=== PATIENT | male | born 1995 | race Caucasian/White ===

== ENCOUNTER 2017-11-16 20:44 | Inpatient (IN) | payer OTHER, MEDICAID ==
[~2017-11-16] VITALS: Ht 170.2 cm; Wt 56.2 kg
--- NOTE | 2017-11-16 21:00 | NUR ---
Pre-Admission Patient was seen in intake office. Patient is noted very hyperverbal, hyperactive, unable to sit still, anxious, flat, and irritable. Policies on home medications reviewed with patient and patient verbalized understanding and stated "I didn't bring anything anyway." Will continue with admission assessment on unit.
--- NOTE | 2017-11-16 21:15 | NUR ---
Admission Patient is a 22 year old male arriving from [place] to [facility] to receiving treatment for his Heroin Withdrawal. Patient was escorted on to unit by male UPHOLSTERY RESTORER where body check was rendered. Skin check rendered by primary nurse with skin noted intact. Patient was able to provide Urine drug screen upon arrival to unit. No known allergies. Height noted as 5'7 and weight noted as 124lbs. Patient is ambulatory with no assistance needed. Patient is noted to be hyperactive, hyperverbal, flat, anxious, easily agitated. Breathing is even and non labored. BUE and BLE noted to be WNL with no edema noted. Lung sounds clear with no cough noted. Bowel sounds are active in all 4 quadrants with LBM noted 11/16/17. Patient verbalizes past medical history of anxiety and insomnia. No Home medications noted with patient or verbalized. No history of Seizure noted. Patient denies any suicidal ideations. He describes his usage as: 1. Heroin, unable to verbalize of when patient first started using and states "a while ago", currently using 1GM Daily IV, with last use noted 11/16/17 at 1400 using 0.5GM Patient explains his signs and symptoms of withdrawal as "I dont know. I'm fidgety, I just feel crazy." Patient explains of multiple treatment admissions with last one noted 2 weeks ago to "[facility] for 2 weeks. Patient is currently Homeless and is unemployed. Admission COWS noted to be 14. All information relayed to MD. Labs to be rendered. PRN medications available for increased signs and symptoms. Offered Subutex due to elevated Subutex and patient refused stating "I dont want that now. its too soon to take it." As well as One time dose of Ativan 2mg for increased anxiety and agitation. Will administered Ativan 2mg accordingly. Will continue plan of care as ordered.
[2017-11-16 21:20] VITALS: BP 147/93
[2017-11-16 21:36] LABS: *AMPHETAMINE, URINE NEGATIVE (NEGATIVE); *BARBITURATE, URINE NEGATIVE (NEGATIVE); *CANNABINOID, URINE NEGATIVE (NEGATIVE); *COCCAINE, URINE NEGATIVE (NEGATIVE); *OPIATE, URINE POSITIVE (NEGATIVE); *PHENCYCLIDINE SCREEN,URINE NEGATIVE (NEGATIVE)
[2017-11-16] MEDS ORDERED: ACETAMINOPHEN 325 MG TABLET PO PRN (22:15)
[2017-11-16] MEDS ORDERED: LOPERAMIDE HCL 2 MG CAPSULE PO PRN ×2 (22:15)
[2017-11-16] MEDS ORDERED: MAGNESIUM HYDROXIDE 30 ML LIQUID UDC PO PRN (22:15)
[2017-11-16] MEDS ORDERED: LORAZEPAM 1 MG TABLET PO ONE (22:15)
[2017-11-16] MEDS ORDERED: METHOCARBAMOL 750 MG TABLET PO PRN (22:15)
[2017-11-16] MEDS ORDERED: ONDANSETRON 4 MG/2 ML VIAL IM PRN (22:15)
[2017-11-16] MEDS ORDERED: MAG HYDROX/AL HYDROX/SIMETH 30 ML LIQUID UDC PO PRN (22:15)
[2017-11-16] MEDS ORDERED: MIRALAX 17 GM POWD.PACK PO PRN (22:15)
[2017-11-16] MEDS ORDERED: IBUPROFEN 400 MG TABLET PO PRN (22:15)
[2017-11-16] MEDS ORDERED: ONDANSETRON ODT 4 MG TAB.RAPDIS SL PRN (22:15)
[2017-11-16] MEDS ORDERED: diphenhydrAMINE 50 MG CAPSULE PO PRN (22:15)
[2017-11-16] MEDS ORDERED: BUPRENORPHINE HCL 2 MG TAB.SUBL SL PRN (22:15)
[2017-11-16] MEDS ORDERED: DICYCLOMINE HCL 20 MG TABLET PO PRN (22:15)
[2017-11-17 00:56] VITALS: BP 132/86
[2017-11-17 04:20] VITALS: BP 129/73
--- NOTE | 2017-11-17 07:23 | NUR ---
End of Shift Patient is noted in bed sleeping. Breathing even and non labored. No signs of pain or discomfort noted as evidence of no facial grimacing noted. No restlessness. Patient to be reassessed by MD for possible Subutex taper. PRN medications ordered for increased signs and symptoms of withdrawal. Patient is noted to be very hyperactive, hyperverbal, easily irritable, anxious, flat, and labile. Admission COWS 14. One time dose of Ativan 2mg administered for increased agitation and anxiety. Patient noted to sleep a total of 7 hours. All needs attended to promptly. Will endorse to continue plan of care as ordered.
[2017-11-17 08:00] VITALS: BP 99/60
--- NOTE | 2017-11-17 08:00 | NUR ---
Start of shift note Received report from night nurse. Patient is a 22 year old male admitted on 11/16/17 for Opiate withdrawals. Patient's last COWS score was 14 per endorsement but patient refused to take Subutex last night, patient received PRN Ativan last night noted to be effective. Patient refused LAB draw at this time, educated patient regarding the importance of compliance to treatment and medication regime, verbalized understanding. Patient appears anxious, agitated, showing irritability, blunt and rude behavior noted. All safety measures secured. Will continue to monitor patient.
[2017-11-17] MEDS ORDERED: TUBERCULIN,PURIF.PROT.DERIV. 5 TU/0.1 ML TEST ID ONE (09:00)
[2017-11-17] MEDS: MULTIVITAMINS,THERAPEUTIC TABLET PO SCH (09:00)
[2017-11-17] MEDS: DOCUSATE SODIUM 250 MG CAPSULE PO SCH (09:00)
--- NOTE | 2017-11-17 09:26 | NUR ---
Medication Refusal; Patient refused to take due medications at this time, patient stated "just let me sleep". Educated patient regarding the importance of compliance to treatment, verbalized understanding. Patient's current COWS score is 6, MD to evaluate patient during rounds. Will closely monitor patient.
--- NOTE | 2017-11-17 09:56 | NUR ---
Behavioral note; Patient is AOX4, patient is very agitated and anxious, complaining of muscle aches, with poor eye contact, angry, irritable, easily overwhelmed, fidgety, demanding, defensive, manipulative, impulsive, attention seeking and complaining of difficulty sleeping. COWS score is 12 at this time. Offered patient Subutex and Vistaril patient refused to take any medications at this time. Patient is asking for Ativan at this time, educated patient that he does not have an order for Ativan and he will be evaluated by MD during rounds. Patient requested to take medications after evaluation by MD. Will closely monitor patient.
--- NOTE | 2017-11-17 10:19 | NUR ---
telephone order; Patient appears very anxious, and agitated unable to sit still. Patient refused LAB draw at this time. Educated patient regarding the importance of compliance to treatment plan, verbalized understanding. MD ordered PRN Ativan 1mg PO Q6H PRN for anxiety and agitation for 24 hours only. Entered on [employer], MD does not have access to [facility] at this time.
[2017-11-17] MEDS: LORAZEPAM 1 MG TABLET PO PRN ×2 (10:31→19:38)
--- NOTE | 2017-11-17 10:40 | NUR ---
Subutex, 4mg PO PRN and Ativan 1mg PO PRN given at 1031 for severe anxiety/agitation. CIWA 12, thorough mouth swab/check performed post
--- NOTE | 2017-11-17 10:54 | NUR ---
Nurse note; PRN medications administered by RN for anxiety,agitation and withdrawal symptoms and COWS of 12. Thorough mouth check done, witnessed Subutex dissolve completely and Ativan was swallowed. Patient agreed to get blood drawn, LAB staff notified. Patient shows suspicious behaviors, PHYSICIST ACOUSTICS seismic prospecting supervisor and charge nurse notified. Addendum: 11/17/17 at 1111 by RICHARD SANTANA LVN Thorough room search to be done by PHYSICIST ACOUSTICS per PHYSICIST ACOUSTICS seismic prospecting supervisor.
--- NOTE | 2017-11-17 11:01 | NUR ---
Re-assessment; Re-assessed patient, patient's current COWS score is 9, PRN Subutex noted to be effective. Will follow up with regarding possible taper orders.
[2017-11-17 11:19] LABS: EOSINOPHILS # (AUTO) 0.3 K/uL (0.0-0.7); EOSINOPHILS % (AUTO) 6.5 % (0.0-7.0); HEMATOCRIT 44.7 % (36.7-47.1); HEMOGLOBIN 15.3 g/dL (12.5-16.3); LYMPHOCYTES # (AUTO) 1.4 K/uL (20.0-40.0); MEAN CORPUSCULAR HEMOGLOBIN 29.7 uug (23.8-33.4); MEAN CORPUSCULAR HGB CONC 34 g/dL (32.5-36.3); MEAN CORPUSCULAR VOLUME 86.9 fL (73.0-96.2); MONOCYTES # (AUTO) 0.4 K/uL (2.0-10.0); NEUTROPHILS # (AUTO) 2.6 K/uL (1.8-8.9); NEUTROPHILS % (AUTO) 53.5 % (38.5-71.5); PLATELET COUNT (AUTO) 262 K/uL (152-348); RED BLOOD CELL COUNT(AUTO) 5.14 MIL/uL (4.06-5.63); WHITE BLOOD COUNT (AUTO) 4.8 K/uL (3.6-10.2)
[2017-11-17 11:28] LABS: ETHANOL < 3 MG/DL (0-0)
[2017-11-17 11:31] LABS: ALANINE AMINOTRANSFERASE 24 U/L (16-63); ALKALINE PHOSPHATASE 72 U/L (50-136); AMYLASE 75 U/L (25-115); ASPARTATE AMINOTRANSFERASE 25 U/L (15-37); BILIRUBIN,TOTAL 0.4 mg/dL (0.2-1.0); CARBON DIOXIDE 26 mmol/L (21-32); CHLORIDE 104 mmol/L (98-107); CREATININE 1.1 mg/dL (0.6-1.3); GLUCOSE 120 mg/dL (74-106); LIPASE 97 U/L (73-393); POTASSIUM 4.1 mmol/L (3.5-5.1); TOTAL PROTEIN, SERUM 7.5 g/dL (6.4-8.2); UREA NITROGEN, BLOOD 13 mg/dL (7-18)
--- NOTE | 2017-11-17 11:31 | NUR ---
Re-assessment; Patient appears calm and comfortable, but patient stated "I am still very anxious, can i get another Ativan?". Educated patient regarding unit protocol and policies, verbalized understanding. Will continue to monitor patient.
[2017-11-17 11:41] LABS: THYROID STIMULATING HORMONE 1.284 mIU/mL (0.358-3.740)
[2017-11-17 12:00] VITALS: BP 132/86
[2017-11-17 16:00] VITALS: BP 119/68
--- NOTE | 2017-11-17 19:08 | NUR ---
End of shift note; Patient is AOX4. Patient is anxious, agitated complaining of muscle aches. Medications were effective in reducing withdrawal symptoms. Patient's last COWS score is 8. Patient to start a 4 day Subutex taper tomorrow. All safety measures secured. Endorsed to incoming nurse. Met all needs.
--- NOTE | 2017-11-17 19:15 | NUR ---
Start of shift note Received report from day shift nurse. Pt is a 22 yo male, A+Ox4, presenting to [facility] for Opiate withdrawal. Pt noted with Anxiety, agitation, restlessness, and messy room. Pt has HX of Anxiety and insomnia which will be monitored during shift. Respirations even and unlabored. Will continue to monitor.
--- NOTE | 2017-11-17 19:38 | NUR ---
PRN Ativan Pt c/o anxiety and requested for PRN Ativan. Medication given and tolerated well. Will reassess within 1 HR. Will continue to monitor.
--- NOTE | 2017-11-17 20:35 | NUR ---
PRN Ativan Reassessment Medication effective. Pt expresses reduction in anxiety. No s/s of ASE noted at this time. Respirations even and unlabored. Will continue to monitor.
[2017-11-17 20:47] VITALS: BP 140/93
[2017-11-18 00:56] VITALS: BP 137/84
[2017-11-18 04:30] VITALS: BP 134/82
--- NOTE | 2017-11-18 06:53 | NUR ---
End of shift note Pt continuously noted with messy room, anxiety, agitation, and restlessness. Pt was out of his room frequently to smoke on smoking patio and to get food from kitchen. Pt was given PRN Ativan for anxiety @1938. Pt slept for a total of 9 HRS. Last COWS: 11 @0400. V/S were WNL during shift. Respirations even and unlabored. Will endorse to day shift nurse.
[2017-11-18] MEDS: LORAZEPAM 1 MG TABLET PO PRN (07:33)
--- NOTE | 2017-11-18 07:33 | NUR ---
PRN ATIVAN Patient came to the nursing station and complained of anxiety. Upon assessment, pt. noted anxious and agitated, PRN Ativan 1mg po tab given. Will continue to monitor patient.
[2017-11-18 08:00] VITALS: BP 129/88
[2017-11-18 08:08] LABS: HEPATITIS B SURFACE AG Negative (Negative)
[2017-11-18] MEDS: MULTIVITAMINS,THERAPEUTIC TABLET PO SCH (09:00)
[2017-11-18] MEDS: DOCUSATE SODIUM 250 MG CAPSULE PO SCH (09:00)
[2017-11-18] MEDS: BUPRENORPHINE HCL 2 MG TAB.SUBL SL SCH ×3 (09:00→22:20)
[2017-11-18] MEDS ORDERED: 4 DAY TAPER BUPRENORPHINE -SERENITY PROTOCOL SL PRN (09:00)
--- NOTE | 2017-11-18 09:39 | NUR ---
START OF SHIFT Received report from whitewater rafting guide nurse. Patient is 22 year old male admitted for medically supervised withdrawal from Heroin. Patient is full code with NKA. Patient is on Subutex taper. On assessment this AM: COWS: 13. Denies SOB, chest pain. Patient complained of anxiety around 0730am, came to the nursing station and said I am anxious, I want some anxiety medications. PRN Ativan 1mg po was given. Patients vitals signs: 129/88, HR 105. R18, 02 sat 100%, Temp 98.9. Patient declined his 9am meds and wants another dose of Ativan due to anxiety. He states 1mg Ativan is not sufficient to address his anxiety. He also states I want to take my anxiety medication with my morning meds. I will wait for the doctor. notified. Most recent COWS 13. Patient appears anxious, agitated, restless, tremors and pupil dilation noted, complained of body aches and stuffy nose. Patient spoke to a therapist this morning who encouraged him to take his AM meds but pt. continues to refused. Patient has steady gait. Encouraged to attend group meetings today. Will continue to monitor patient.
[2017-11-18] MEDS: CLONIDINE HCL 0.1 MG TABLET PO PRN ×3 (09:48→22:20)
--- NOTE | 2017-11-18 09:48 | NUR ---
PRN CLONIDINE Patient complained of anxiety, PRN clonidine given, BP 124/87. Will continue to monitor patient.
--- NOTE | 2017-11-18 10:48 | NUR ---
REASSESSMENT PRN CLONIDINE Patient noted asleep with eyes closed and unlabored breathing noted.
[2017-11-18 12:00] VITALS: BP 91/54
[2017-11-18 16:00] VITALS: BP 115/70
--- NOTE | 2017-11-18 16:00 | NUR ---
PRN CLONIDINE Patient complained of anxiety, agitation,sweats, PRN clonidine 0.1mg PO given, Will continue to monitor patient.
--- NOTE | 2017-11-18 17:00 | NUR ---
REASSESSMENT PRN CLONIDINE Patient noted calmer, he reports less anxious at this time.
--- NOTE | 2017-11-18 19:06 | NUR ---
END OF SHIFT Patient is 22 year old male admitted for medically supervised withdrawal from Heroin. Patient is full code with NKA. Patient is on Subutex taper (refused 0900 AM dose). Patient received PRN clonidine X2 this shift for anxiety. Patient was encouraged to take his scheduled subutex at 3pm. He states I will take it with my next scheduled dose of anxiety medication. Most recent COWS: 15, reports anxiety, tremors, sweating, runny nose. Patient noted with agitation, irritable mood, yawning, restlessness and pupil dilation. Compliant with his 3pm medication. Ambulating with steady gait, no falls noted. mason helperlinux server administrator will continue to monitor patient.
--- NOTE | 2017-11-18 19:15 | NUR ---
Start of shift note Received report from day shift nurse. Pt is a 22 yo male, A+Ox4, presenting to [facility] for Opiate withdrawal. Pt noted with anxiety, agitation, and very messy room with food on floor, bed, and dresser. Pt is on 5 day Subutex taper, tolerated well. Pt has HX of anxiety and insomnia which will be monitored during shift. Respirations even and unlabored. Will continue to monitor.
[2017-11-18 20:10] VITALS: BP 128/87
--- NOTE | 2017-11-18 22:20 | NUR ---
PRN Clonidine Pt c/o anxiety and agitation and requested for PRN Clonidine. Medication given and tolerated well. Will reassess within 1 HR. Will continue to monitor.
--- NOTE | 2017-11-18 23:20 | NUR ---
PRN Clonidine Reassessment Medication effective. Pt expresses reduction in anxiety and agitation. No s/s of ASE noted at this time. Respirations even and unlabored. Will continue to monitor.
[2017-11-19 00:12] VITALS: BP_SYST 105; BP_SYST 131; BP_DIAS 73; BP_DIAS 78
[2017-11-19 04:22] VITALS: BP 129/78
--- NOTE | 2017-11-19 06:59 | NUR ---
End of shift note Pt continuously noted with agitation, anxiety, restlessness, very messy room and irritability. Pt was out of room frequently to get food from kitchen and to go smoke on smoking patio. Pt was given PRN Clonidine for anxiety and agitation @2220. Medication was effective. No s/s of ASE noted. Pt slept for a total of 7 HRS. Last COWS: 10 @0400. V/S were WNL during shift. Respirations even and unlabored. Will endorse to day shift nurse.
--- NOTE | 2017-11-19 07:00 | NUR ---
Start of Shift Plant Protection Guard received report on 22 year old male admitted to [facility] on 11/16/17 for medical management of Heroin withdrawal. Pt endorses NKA, full code and regular diet. Pt reports PMH of anxiety and insomnia. Pt currently on a Subutex taper, tolerating well. Last COWS 10, recorded at 0400, per report. Pt administered PRN Clonidine on NOC. Plant Protection Guard encounters pt in bed resting with eyes closed. Rise and fall of chest noted with even rise and fall of chest noted. Bed in low position with wheels locked and side rails up x2. Will continue to monitor, support and encourage according to plan of care.
[2017-11-19 08:55] VITALS: BP 111/59
[2017-11-19] MEDS ORDERED: BUPRENORPHINE HCL 2 MG TAB.SUBL SL SCH (09:00)
[2017-11-19] MEDS: DOCUSATE SODIUM 250 MG CAPSULE PO SCH (09:00)
[2017-11-19] MEDS: MULTIVITAMINS,THERAPEUTIC TABLET PO SCH (09:03)
[2017-11-19] MEDS: CLONIDINE HCL 0.1 MG TABLET PO PRN (09:03)
[2017-11-19] MEDS: HYDROXYZINE PAMOATE 25 MG CAPSULE PO PRN (09:03)
--- NOTE | 2017-11-19 09:03 | NUR ---
PRN Clonidine/Vistaril Pt wakes up and comes to nurses station and requests medication for anxiety. Pt is still having difficulty keeping eyes open and affect is somnolent. Hydrogen Power Plant Manager administers medication per MD orders and pt tolerated well. Will continue to monitor, support and encourage according to plan of care.
--- NOTE | 2017-11-19 09:05 | NUR ---
Subutex Administration Interior Design Program Chair was administering pt's Subutex medication for his scheduled 0900 dose. Interior Design Program Chair was present with pt monitoring pt's behavior during administration. Pt attempted to cheeck medication by lifing one pill onto tongue and placing second pill under tongue. Interior Design Program Chair examined and witnessed only one pill visible. Interior Design Program Chair asked pt what happened with second pill and pt became verbally aggressive and loud. Pt stated, " what if I show you 2 now." Pt then opened mouth and lifted tongue to reveal two pills. Interior Design Program Chair continued to monitor administration of medication, checking with pen light every minute. On last inspection, pills were starting to dissolve. Pt then grabbed a bottle of water and began drinking, scientific technical writer asking pt to stop drinking. Pt continued to drink as scientific technical writer asked again to please stop. Pt completed his drinking and began to verbally berate scientific technical writer. Opening mouth, lifting tongue and revealing the medication was no longer in his mouth, upon inspection with pen light. Interior Design Program Chair notified TERRI CHING and TATIANA. Will continue to monitor, support and encourage according to plan of care.
--- NOTE | 2017-11-19 09:30 | NUR ---
Patient Communication: Patient verbalizes willingness to comply to medication regime and states, "I will take my medications as the Doctor orders them." Patient verbalizes feeling very agitated and anxious but states that he is motivated to pursue long-term sobriety. Patient verbalizes fear of the detox process and difficulty coping with his anxiety and agitation. Patient educated by physician underwriter on medication regime and proper medication administration protocol. Patient encouraged to engage in diversional activities to alleviate anxiety and practice self-soothing techniques such as progressive muscle relaxation to cope with agitation.
--- NOTE | 2017-11-19 10:03 | NUR ---
PRN Re-Assessment Pt is calm and more cooperative, pt endorses feeling relief. Will continue to monitor, support and encourage according to plan of care.
[2017-11-19 12:10] VITALS: BP 95/49
[2017-11-19] MEDS: BUPRENORPHINE HCL 2 MG TAB.SUBL SL SCH ×2 (15:52→21:00)
[2017-11-19 16:40] VITALS: BP 117/67
--- NOTE | 2017-11-19 19:19 | NUR ---
End of Shift Helper Shear Operator provided report on 22 year old male admitted to [facility] on 11/16/17 for medical management of Heroin withdrawal. Pt endorses NKA, full code and regular diet. Pt reports PMH of anxiety and insomnia. Pt currently on a Subutex taper, tolerating well. Last COWS 6, recorded at 1600. Pt administered PRN Clonidine/Vistaril at 0903. Pt is A/O x4 and able to make needs known. Pt with pressured speech and flight of ideas. Pt is rude, disrespectful and verbally abusive. Pt resistive to medication administration and challenges authority. Poor impulse control. Pt has calmed somewhat since being spoken to by TATIANA for checking incident this am (see note) Bed in low position with wheels locked and side rails up x2.
--- NOTE | 2017-11-19 19:20 | NUR ---
Start of shift note Received report from day shift nurse. Pt is a 22 yo male, A+OX4, presenting to [facility] for Opiate withdrawal. Pt was noted to be agitated, anxious, restless, and having a very messy room with food on dresser and side table. Pt has HX of Anxiety and insomnia which will be monitored during shift. Pt is on Subutex taper, tolerated well. Respirations even and unlabored. Will continue to monitor.
[2017-11-19 20:08] VITALS: BP 91/64
[2017-11-20 00:15] VITALS: BP 97/74
[2017-11-20 04:22] VITALS: BP 110/76
--- NOTE | 2017-11-20 07:00 | NUR ---
End of shift note Pt was continuously noted with agitation, anxiety, restlessness, and having a messy room. Pt was out of room periodically to get food from kitchen and to go smoke on smoking patio. Pt was not given any PRNs during shift. Pt slept for a total of 8 HRS. Last COWS: 7 @0400. V/S were WNL during shift. Respirations even and unlabored. Will endorse to day shift nurse.
--- NOTE | 2017-11-20 07:20 | NUR ---
START OF SHIFT PATIENT IS A 22 YR OLD MALE ADMITTED TO [facility] ON 11/16/17 FOR WITHDRAWAL FROM OPIATES. HE IS ON A 5 DAY SUBUTEX TAPER. PATIENT DID NOT REQUIRE OR REQUEST ANY PRN MEDS LAST NIGHT, HE SLEPT FOR 8 HOURS AND LAST COWS 7 @ 0400. WILL FOLLOW MD PLAN OF CARE.
[2017-11-20 08:00] VITALS: BP 124/80
[2017-11-20] MEDS: BUPRENORPHINE HCL 2 MG TAB.SUBL SL SCH ×3 (10:20→20:28)
[2017-11-20] MEDS: DOCUSATE SODIUM 250 MG CAPSULE PO SCH (10:20)
[2017-11-20] MEDS: MULTIVITAMINS,THERAPEUTIC TABLET PO SCH (10:20)
[2017-11-20 12:00] VITALS: BP 134/60
[2017-11-20 16:00] VITALS: BP 132/76
--- NOTE | 2017-11-20 18:36 | NUR ---
END OF SHIFT PATIENT IS A 22 YR OLD MALE ADMITTED TO [facility] ON 11/16/17 FOR WITHDRAWAL FROM OPIATES. HE IS ON A 5 DAY SUBUTEX TAPER. PATIENT DID NOT REQUIRE OR REQUEST ANY PRN MEDS THIS SHIFT, HE REFUSED HIS 1500 SCHEDULED SUBUTEX DOSE STATING HE DOESN'T LIKE THE WAY IT TASTES. PATIENT HAS KEPT TO HIMSELF AND IS IRRITABLE AND AGITATED AT TIMES.LAST COWS 8 AND CIWA 7 @ 1600. FLUID INTAKE THIS SHIFT 1200ML, 3 VOIDS AND 0 BM. WILL FOLLOW MD PLAN OF CARE.
[2017-11-20 20:00] VITALS: BP 119/76
--- NOTE | 2017-11-20 20:03 | NUR ---
Start of Shift Report rec'd from day RN. 22 y/o male, admitted 11/16 for Heroin IV detox/withdrawel. Hx of anxiety, insomnia on Subutex taper often refused per report(taste objectionable), last COWS 8/CIWA 7. Found resting in darkened room with tv, arousable to door knock, with blunt affect, angry/depressed but cooperative. Room appearance poor with clothes thrown on floor, garbage around room. Bed locked with siderails x 2 up, semi-Fowlers. Will monitor and attempt to reinforce POC w patient.
[2017-11-20] MEDS: CLONIDINE HCL 0.1 MG TABLET PO PRN (20:28)
--- NOTE | 2017-11-20 20:30 | NUR ---
PRN Clonidine Pt c/o anxiety, moderate/severe 03/29. Clonidine, 0.1 mg PO given, will reassess
--- NOTE | 2017-11-20 21:49 | NUR ---
Clonidine Reassessment Pt found laying in bed, room dark, watching tv, appears much calmer
--- NOTE | 2017-11-20 21:51 | NUR ---
Behavioral Note Pt requesting Ativan for increased anxiety before evening meds, with evening meds, and during reassessment for Clonidine, 0.1mg, PO at 2030. Continues to refuse Vistoril for anxiety
[2017-11-21] VITALS: BP 110/72
--- NOTE | 2017-11-21 07:00 | NUR ---
End of Shift Note: Start of Shift Report rec'd from day RN. 22 y/o male, admitted 11/16 for Heroin IV detox/withdrawel. Hx of anxiety, insomnia on Subutex taper often refused per report(taste objectionable), last COWS 8/CIWA 7. Found resting in darkened room with tv, arousable to door knock, with blunt affect, angry/depressed but cooperative. Room appearance poor with clothes thrown on floor, garbage around room, Bed locked with siderails x 2 up, semi-Fowlers. Will monitor and attempt to reinforce POC w patient.
[2017-11-21 08:05] VITALS: BP 104/63
--- NOTE | 2017-11-21 08:10 | NUR ---
START OF SHIFT NOTE Received report from night nurse, patient admitted for Opioid withdrawal. Patient cont on Subutex taper tolerating well. Per endorsement pt was given PRN Clonidine noted to be effective, last -, slept for 5 hours. Received patient in his room noted with flat effect, anxious, agitated, clothes all over the floor, Breathing normal no SOB noted. Skin intact warm and dry to touch. Educated patient with plan of the day and medication regimen. Safety measures in place. Will cont with plan of care.
[2017-11-21] MEDS: DOCUSATE SODIUM 250 MG CAPSULE PO SCH (08:30)
[2017-11-21] MEDS: MULTIVITAMINS,THERAPEUTIC TABLET PO SCH (08:30)
[2017-11-21] MEDS ORDERED: BUPRENORPHINE HCL 2 MG TAB.SUBL SL SCH (09:00)
[2017-11-21] MEDS: HYDROXYZINE PAMOATE 25 MG CAPSULE PO PRN (11:26)
--- NOTE | 2017-11-21 11:26 | NUR ---
PRN VISTARIL Patient c/o of anxiety, agitation. PRN Vistaril 50MG PO given as ordered. Will cont to monitor and reassess.
[2017-11-21 12:00] VITALS: BP 124/72
--- NOTE | 2017-11-21 12:26 | NUR ---
VISTARIL REASSESSMENT Per patient Vistaril was effective anxiety and agitation subsided.
[2017-11-21] MEDS ORDERED: CLON0.1T14 PO (14:55)
[2017-11-21] MEDS ORDERED: HYDR-3895 PO (14:55)
[2017-11-21 16:00] VITALS: BP 133/82
--- NOTE | 2017-11-21 19:10 | NUR ---
END OF SHIFT NOTE Patient completed his Subutex taper tolerated well. Patient received PRN Vistaril noted to be effective. Patient scheduled for discharge in am. Vital signs WNL. Patient remained compliant with plan of care. Safety measures in place. Patient endorsed to night nurse in stable condition.
--- NOTE | 2017-11-21 19:30 | NUR ---
START OF SHIFT Pt is a 22 y/o male admitted on 11/16/17 for opiate withdrawal. Pt finished a modified Subutex taper, tolerated well, to be d/c tomorrow. Per day shift nurse, PRN Vistaril administered and last COWS 9. Upon assessment pt presents with fatigue, anxiety, agitation, flat affect, slumped posture, restlessness, dysphoria and anhedonia. No scheduled medications due, will administer PRNs if needed. Safety measures in place. Call light within reach. Will continue to monitor.
[2017-11-21 20:00] VITALS: BP 126/83
--- NOTE | 2017-11-22 | NUR ---
COWS DEFERRED AND VITALS REFUSED Pt laying in bed with eyes closed, COWS deferred, to be assessed when pt is awake per orders, respirations even and unlabored. Vitals refused. Safety measures in place. Call light within reach. Will continue to monitor.
--- NOTE | 2017-11-22 07:04 | NUR ---
END OF SHIFT Pt is a 22 y/o male admitted on 11/16/17 for opiate withdrawal. Pt finished a modified Subutex taper, tolerated well, scheduled to be d/c today. Pt presented with fatigue, anxiety, agitation, flat affect, slumped posture, restlessness, dysphoria and anhedonia. Pt had difficulty falling and staying asleep. No scheduled medications or PRNs administered. Pt denied PRNs. Last COWS 6. Pt slept 8 hours. Intake 987 ml, void x 2, stool x 1. Safety measures in place. Call light within reach. Pts needs have been met. Endorsed to day shift nurse.
--- NOTE | 2017-11-22 07:49 | NUR ---
START OF SHIFT NOTE Received report from night nurse, patient admitted for Opioid withdrawal. Patient completed his Subutex taper tolerated well. Per endorsement pt was given PRN Clonidine noted to be effective, last COWS-6, slept for 8 hours. Received patient in his room anxious, agitated, dirty room, spilled drinks, fatigue. Patient scheduled for discharge today. Breathing normal no SOB noted. Skin intact warm and dry to touch. Educated patient with plan of the day and medication regimen. Safety measures in place. Will cont with plan of care.
[2017-11-22 08:00] VITALS: BP 124/79
[2017-11-22] MEDS: MULTIVITAMINS,THERAPEUTIC TABLET PO SCH (08:26)
[2017-11-22] MEDS: DOCUSATE SODIUM 250 MG CAPSULE PO SCH (08:26)
--- NOTE | 2017-11-22 09:37 | NUR ---
DISCHARGE NOTE Patient has been discharged from [facility] Patient is in Stable condition, VS WNL. Denies suicidal and homicidal ideations at this time. All documentation has been completed, paperwork signed and dated. Pt left with all of his belongings, medications and prescriptions. Pt has been discharged from [facility] on 11/22/17 at 0937. has been Notified.
[2017-12-16] MEDS ORDERED: QUETIAPINE FUMARATE 25 MG TABLET PO SCH (17:00)
[2017-12-16] MEDS ORDERED: QUETIAPINE FUMARATE 200 MG TABLET PO SCH (21:00)
[2017-12-17] MEDS ORDERED: DIPH50CA37 PO (16:40)
[2017-12-17] MEDS ORDERED: GABA-534 PO (16:40)
[2017-12-17] MEDS ORDERED: HYDR-3895 PO (16:40)
[2017-12-17] MEDS ORDERED: METH-406 PO (16:40)
[2017-12-17] MEDS ORDERED: CLON0.1T14 PO (16:40)
[2017-12-17] MEDS ORDERED: IBUP-1955 PO (16:40)
[2017-12-17] MEDS ORDERED: DICY20TA28 PO (16:40)
== END 2017-11-22 09:38 | disposition home or self-care (01) | DRG 895 ==
LOC: SRC 20:44
PROVIDERS: ADMIT Internal Medicine; ATTEND Internal Medicine
PROC: HZ2ZZZZ Detoxification Services for Substance Abuse Treatment (ICD-10-PCS; principal; 2017-11-16)
PROC: HZ31ZZZ Individual Counseling for Substance Abuse Treatment, Behavioral (ICD-10-PCS; 2017-11-18)
PROC: HZ41ZZZ Group Counseling for Substance Abuse Treatment, Behavioral (ICD-10-PCS; 2017-11-20)
DX: F11.23 Opioid dependence with withdrawal (principal); F17.210 Nicotine dependence, cigarettes, uncomplicated; F41.9 Anxiety disorder, unspecified; G47.00 Insomnia, unspecified; F32.9 Major depressive disorder, single episode, unspecified; Z59.0 Homelessness
CPT/HCPCS: 36415; 70030-TC; 80307; 80361; 83690; 83735; 84443; 85025; 86592; 86705; 86803; 87340; 87806; A4663; G0480; Q0163

== ENCOUNTER 2017-12-15 15:09 | Inpatient (IN) | payer OTHER ==
[~2017-12-15] VITALS: Ht 170.2 cm; Wt 56.7 kg
[~2017-12-15 15:09] MED LIST: CLON0.1T14 PO; HYDR-3895 PO
[2017-12-15 15:15] VITALS: BP 156/89
--- NOTE | 2017-12-15 15:15 | NUR ---
Pre Admission Assessment Senior Administrative Associate encounters pt in intake office. Pt is A/O x4 and makes his needs known. Pt is hyperactive, hyper-verbal and anxious. Pt is unable to sit still and moves his legs rhythmically. Pt has an anxious mood and affect. Pt states he is withdrawing and endorses nausea, restlessness, anxiety, muscle pains and stuffy nose. Pt initial COWS 13. VS stable.
--- NOTE | 2017-12-15 15:25 | NUR ---
Admission Pt is admitted to [facility] per ambulation, steady gait. Pt A/O x4 and makes his needs known. Anxious, hyperactive and hyper-verbal. Restless and nervous. Pt endorses having withdrawal symptoms, nausea, muscle aches, anxiety and restlessness. Pt is Hypertensive and tachycardiac. Pt endorses last use of Heroin and Methamphetamine at 0200 on 12/15. Pt's initial COWS of 13. Pt endorses using 1 gram of IV Heroin for the past 20 days. Pt was at [facility] in 11/07 and transitioned to a [facility], [facility] where pt was asked to leave for using Heroin. This is pt's second attempt at sobriety. Pt does endorse a longest period of sobriety of 1 month in 08/2017. Pt relapsed 20 days ago and states his biggest trigger was, " I am just an idiot," Pt endorses just wanting to get high as a trigger. Educated pt on importance and need for a RTC. Pt denies any medical problems, does endorse some anxiety. Pt endorses no known seizure activity. Pt states he has never overdosed. Pt denies any psychiatric history, has never had a SA, SI or placed on a 5150. Pt states he is here today " to get sober." Pt is needy and immediately asks where his medication is. Manager Engine educated pt on admission process and oriented to unit rules, and regulations. All paperwork signed and admission material covered. No home medication to secure. Will continue to monitor, support and encourage according to plan of care.
[2017-12-15] MEDS ORDERED: DICYCLOMINE HCL 20 MG TABLET PO PRN (15:30)
[2017-12-15] MEDS ORDERED: MIRALAX 17 GM POWD.PACK PO PRN (15:30)
[2017-12-15] MEDS ORDERED: CLONIDINE HCL 0.1 MG TABLET PO PRN (15:30)
[2017-12-15] MEDS ORDERED: LOPERAMIDE HCL 2 MG CAPSULE PO PRN ×2 (15:30)
[2017-12-15] MEDS ORDERED: ONDANSETRON 4 MG/2 ML VIAL IM PRN (15:30)
[2017-12-15] MEDS ORDERED: ACETAMINOPHEN 325 MG TABLET PO PRN (15:30)
[2017-12-15] MEDS ORDERED: MAGNESIUM HYDROXIDE 30 ML LIQUID UDC PO PRN (15:30)
[2017-12-15] MEDS ORDERED: MAG HYDROX/AL HYDROX/SIMETH 30 ML LIQUID UDC PO PRN (15:30)
[2017-12-15] MEDS ORDERED: METHOCARBAMOL 750 MG TABLET PO PRN (15:30)
[2017-12-15] MEDS ORDERED: diphenhydrAMINE 50 MG CAPSULE PO PRN (15:30)
[2017-12-15] MEDS ORDERED: ONDANSETRON ODT 4 MG TAB.RAPDIS SL PRN (15:30)
[2017-12-15] MEDS ORDERED: HYDROXYZINE PAMOATE 25 MG CAPSULE PO PRN (15:30)
[2017-12-15] MEDS: BUPRENORPHINE HCL 2 MG TAB.SUBL SL SCH ×3 (16:07→21:42)
[2017-12-15 17:03] VITALS: BP 123/70
--- NOTE | 2017-12-15 19:05 | NUR ---
End of Shift Industrial Automation Specialist provided report on 22 year old male admitted to [facility] this afternoon. Pt is admitted for medical management of Heroin and Methamphetamine withdrawals. Pt endorses NKA, full code and regular diet. Denies PMH, but does say he has anxiety, but takes no medication. No PRN medication administered. Pts initial COWS of 13, pt then administered Subutex at 1600 and subsequent COWS 10. Pt is anxious, restless, demanding, and entitled. Pt irritable about not receiving anxiety medication, stating, I need Ativan, Industrial Automation Specialist offered Vistaril and pt stated, thats over the counter crap. Pt refused lab draw, stating, I am too anxious, after I get my Ativan. Bed in low position with wheels locked and side rails up x2. Will continue to monitor, support and encourage according to plan of care.
--- NOTE | 2017-12-15 19:30 | NUR ---
Side rails Refused Px refused to put the upper 2 side rails up.
--- NOTE | 2017-12-15 19:30 | NUR ---
Start of Shift Note Received a 22 y/o male px admitted for medically supervised withdrawals from Opiate. Px was placed on 5 day Subutex taper starting on 12/15/2017. Last reported COWS 10 by AM shift nurse. During the rounds at 1930, px is awake on bed in right side lying position. Px looks anxious, disheveled with dirty nails, and with poor eye contact. Unfinished snacks and drinks noted on top of the bed side table. Px stated "My anxiety is 10/10". "Can I have my medicines at 8 o'clock?" Px also complained for runny nose. Bed in lowest position and call light within reach. We'll continue to monitor.
[2017-12-15 20:00] VITALS: BP 123/69
[2017-12-15] MEDS: GABAPENTIN 300 MG CAPSULE PO SCH (20:07)
--- NOTE | 2017-12-15 20:10 | NUR ---
Subutex swallowed Px was instructed how to take the Subutex before giving. Px put the tablets under the tongue. After 2 minutes, it was checked, tablets are dissolving but slow. 2 minutes past, tablets were checked again, they were dissolving but in a pretty slow rate. After 2 minutes past, when I about to check it, Px drank juice and swallow the tablets. Px was informed that if the Subutex were swallowed, they might not be effective and he has to be patient in taking this medicine for it to be effective and helpful.
[2017-12-15] MEDS ORDERED: LORAZEPAM 1 MG TABLET PO SCH (21:00)
[2017-12-15 21:24] LABS: *BARBITURATE, URINE NEGATIVE (NEGATIVE)
[2017-12-15 21:25] LABS: *AMPHETAMINE, URINE NEGATIVE (NEGATIVE); *CANNABINOID, URINE NEGATIVE (NEGATIVE); *COCCAINE, URINE NEGATIVE (NEGATIVE); *OPIATE, URINE NEGATIVE (NEGATIVE); *PHENCYCLIDINE SCREEN,URINE NEGATIVE (NEGATIVE)
[2017-12-16] VITALS: BP 119/72
[2017-12-16 04:00] VITALS: BP 121/74
--- NOTE | 2017-12-16 04:00 | NUR ---
COWS deferred COWS deferred due to the px is asleep at 0000 and 0400, to assess if the px is awake per doctor's order. We'll continue to monitor.
--- NOTE | 2017-12-16 07:22 | NUR ---
End of Shift Note During the shift, px slept most of the time. Blood was not drawn for labs. Px was advised and informed the right way of taking the medicine Subutex. Pxs oral intake is 1,400, voided 2x, BM 1x. Slept for 9 hours. Px refused to put up the upper side rails x2. At 0630, px is asleep on bed in fowlers position. Bed in lowest position and call light within reach. We'll continue to monitor. Px endorsed to AM shift nurse.
--- NOTE | 2017-12-16 07:24 | NUR ---
Start of Shift Notes: Received endorsement from night nurse. Patient is a 22 year old male admitted for opiate withdrawal. He is currently on a 5-day Subutex taper. Tolerating well. Received patient in his room. Room appears messy, unkept with dirty linen on the floor, empty water bottles and empty chip bags on his bedside. He appears drowsy upon waking but denies AV hallucinations or S/i or H/I. He appears disheveled. Encouraged maintenance of personal hygiene and space. Educated patient on his current plan of care for the day and his medication regimen. Encouraged oral fluid intake and encouraged group participation to learn new skills to prevent relapse. Will continue to monitor.
[2017-12-16 08:00] VITALS: BP 106/58
[2017-12-16] MEDS: LORAZEPAM 1 MG TABLET PO PRN ×3 (08:57→21:54)
--- NOTE | 2017-12-16 08:57 | NUR ---
Ativan 2 mg PO given: Patient noted with severe agitation m/b hyperverbal speech, racing thoughts - jumping from one topic to another stating "Where's my clothes, can I get a towel, I'm anxious" repeatedly. Also noted with restlessness while in bed, frequently shifting body movement. Pulse 97, COWS 21. Medicated patient with Ativan 2 mg PO as ordered for s/s of withdrawal and agitation. Will monitor for effectiveness.
[2017-12-16] MEDS: GABAPENTIN 300 MG CAPSULE PO SCH ×3 (08:59→21:53)
[2017-12-16] MEDS: BUPRENORPHINE HCL 2 MG TAB.SUBL SL SCH ×3 (08:59→21:54)
[2017-12-16] MEDS ORDERED: TUBERCULIN,PURIF.PROT.DERIV. 5 TU/0.1 ML TEST ID ONE (09:00)
--- NOTE | 2017-12-16 09:57 | NUR ---
Re-assessment: Ativan Patient is observed to be laying in bed but with restless legs. He verbalized that PRN Ativan was effective in reducing anxiety/agitation and restlessness. Will continue to monitor.
[2017-12-16 12:00] VITALS: BP 106/60
--- NOTE | 2017-12-16 12:30 | NUR ---
MD Communication: New orders Patient request for blood to be drawn from his lower extremities due to poor venous access on BUE. Notified Dr. Nuñez. Orders obtained that patient is OK to have blood drawn from lower extremities. Orders noted and carried out.
--- NOTE | 2017-12-16 13:25 | NUR ---
Nursing entry: Lab attempted to obtain blood from patient's left and right lower extremity. However, amount of specimen was not sufficient. Will continue to offer and attempt.
[2017-12-16] MEDS ORDERED: QUET200T PO (14:41)
[2017-12-16] MEDS ORDERED: QUET50TA PO (14:41)
--- NOTE | 2017-12-16 15:00 | NUR ---
Nursing Entry: Labs Attempted blood draw for the patient to his lower extremities to no avail. Notified MD Nuñez. Per , ok for patient not to have labs at this time.
[2017-12-16 16:00] VITALS: BP 114/63
[2017-12-16] MEDS: QUETIAPINE FUMARATE 25 MG TABLET PO SCH (17:30)
--- NOTE | 2017-12-16 17:42 | NUR ---
Ativan 2 mg PO given/Seroquel 50 mg PO at 1730 not administered: Patient noted with increased anxiety and agitation. Noted with pacing along the room. Biting his nails and sweating. He appears hypervigilant with hyperverbal speech and verbally aggressive. Encouraged patient to verbalize his feelings and concerns. Offered Seroquel 50 mg PO but refused. Patient stated "I'm not going to take Seroquel right now, I am too anxious." Educated patient on the benefits but patient still refused. Medicated patient with Ativan 2 mg Po as ordered. Will monitor for effectiveness.
[2017-12-16] MEDS: IBUPROFEN 600 MG TABLET PO PRN (18:31)
--- NOTE | 2017-12-16 18:31 | NUR ---
Motrin 600 mg PO given: Patient was given Motrin 600 mg PO as ordered for toothache. PL 02/27.
--- NOTE | 2017-12-16 18:42 | NUR ---
Re-assessment: Ativan Patient appears to be more at ease at this time. Continues to complain of mild anxiety. PRN Ativan was effective in reducing anxiety/agitation.
--- NOTE | 2017-12-16 19:04 | NUR ---
End of Shift Notes: Patient continues to be on 5-day Subutex taper as ordered. No adverse reactions noted. Patient is tolerating taper well. VS monitored closely. No significant abnormalities noted. Withdrawal symptoms were closely monitored. Initial COWS 21, patient presented with gross tremors, anxiety, agitation, chills, hot flashes, restlessness, myalgia. Last COWS 12. Medicated patient with Ativan 2 mg PO as ordered at 0857 and at 1742 for increased anxiety and agitation with help after 1 hour. Motrin 600 mg PO given at 1831 for toothache. Patient is hyperverbal, anxious throughout the shift. Demanding and requesting for more meds at times. Seen and examined by Dr. Santana with new orders. Unable to participate in group and activities due to his withdrawal symptoms. All needs met and attended. Will continue to monitor closely.
--- NOTE | 2017-12-16 19:30 | NUR ---
Start of Shift Pt is a 22 y/o male admitted for medically managed withdrawal/detox from Heroin and Methamphetamine. Pt last admitted approximately 1 month prior for same diagnosis. Originally, pt found sleeping in bed, arousable to voice. Pt appears disheveled, unkempt, expression angry, eye contact avoidant, irritable. Behavior received in endorsement and observed is demanding, manipulative (says he needs an Ativan for his toothache), also reports anxiety to be "through the roof", dishonest and disrespectful. 2100 meds reviewed, Ativan 2mg PO planned to add. Will continue to monitor and attend to all needs promptly.
--- NOTE | 2017-12-16 19:31 | NUR ---
PRN Med Reassessment Motrin 600mg PO given for toothache 6/10 pain. On reassessment pt reports pain as 4/10. Requesting Ativan for toothache
[2017-12-16 20:00] VITALS: BP 137/88
--- NOTE | 2017-12-16 21:53 | NUR ---
PRN Med Ativan 2mg PO given for pt report of anxiety "through the roof" 06/29. Will continue to monitor and reassess in 1 hour promptly attending to all needs
[2017-12-16] MEDS: QUETIAPINE FUMARATE 200 MG TABLET PO SCH (21:54)
--- NOTE | 2017-12-16 21:58 | NUR ---
Behavioral Note Pt demanding, aggressive, resentful, emotionally volatile. Pt swallows Subutex 4mg after approximately 4-5 minutes under tongue with little absorbtion taking place. Declares loudly "You've been standing there for 20 minutes!"
--- NOTE | 2017-12-16 22:53 | NUR ---
PRN Med Reassessment Ativan 2 mg PO given for "through the roof" anxiety level 06/29. Pt found sleeping. Med effective. Will continue to monitor and promptly attend to all needs
--- NOTE | 2017-12-17 | NUR ---
VS's/COWS Deferred Vs's and COWS deferred r/t pt sleeping/refused. RR 14, even and non-labored. Will continue to monitor and promptly attend to all needs
--- NOTE | 2017-12-17 04:00 | NUR ---
VS's/COWS Deferred Vs's and COWS deferred r/t pt sleeping/refused. RR 14, even and non-labored. Will continue to monitor and promptly attend to all needs
--- NOTE | 2017-12-17 06:43 | NUR ---
End of Shift Pt is a 22 y/o male admitted for medically managed withdrawal/detox from Heroin and Methamphetamine. Pt given Ativan 2mg PO with evening meds, including Seroquel 200mg PO. Behavioral issues during evening include disrespectful and demanding, manipulation. Ativan for "toothache pain" was requested, and Subutex 4mg SL was swallowed prematurely. Pt slept for 7+ hours, with 500 mls intake, 2 voids and 0 BM's. Will continue to monitor pt and attend to all needs promptly before giving endorsement to day nurse.
--- NOTE | 2017-12-17 06:44 | NUR ---
End of Shift Pt is a 49 y/o male admitted 12/16/17 approximately 1400 for medically managed withdrawal/detox from ETOH. No scheduled or PRN meds given during night. Pt sleeping intermittently with occasional strolls through halls. No c/o pain, diaphoresis, auditory, visual or tactile hallucinations, VS's stable, CIWA 4 all 3 assessments. Pt slept for 5+ hours, with 1105 mls intake and 1 voids, 0 BM's. Will continue to monitor pt and attend to all needs promptly before giving endorsement to day nurse. Addendum: 12/17/17 at 0645 by ISAURO PEDROZA RN error- posted on incorrect pt
--- NOTE | 2017-12-17 07:05 | NUR ---
Start of Shift Road Machine Operator received report on 22 year old male admitted on 12/15/17 for medical management of Heroin and Methamphetamine withdrawals. Pt endorses NKA, full code and regular diet. No PMH, endorses PPH of anxiety. Pt has been placed on a Subutex taper and is tolerating well with last COWS 13 recorded at 1999, per NOC report. Pt was administered Ativan(anxiety) PRN on NOC. Road Machine Operator encounters pt in pts room resting with eyes closed and even and unlabored respirations. Rise and fall of chest noted. Bed in low position with wheels locked and side rails up x2. Will continue to monitor, support and encourage according to plan of care.
[2017-12-17 08:57] VITALS: BP 93/51
[2017-12-17] MEDS: QUETIAPINE FUMARATE 25 MG TABLET PO SCH ×4 (09:00→17:08)
[2017-12-17] MEDS ORDERED: BUPRENORPHINE HCL 2 MG TAB.SUBL SL SCH (09:00)
[2017-12-17] MEDS: GABAPENTIN 300 MG CAPSULE PO SCH ×3 (09:21→20:29)
[2017-12-17] MEDS ORDERED: LORAZEPAM 1 MG TABLET PO ONE ×2 (09:45→21:00)
[2017-12-17 12:16] VITALS: BP 111/59
--- NOTE | 2017-12-17 13:33 | NUR ---
Seroquel Refusal Pt refuses to take scheduled medication, stating, " that stuff doesn't work, I need Ativan, that's all that works." Pt educated on the benefits of medication and its direct affect on anxiety. Pt states, " I will take it with my Ativan." Principal Statistical Programmer reminded pt of Dr. Tay OT order of Ativan, administered this am by commercial insurance underwriter. Principal Statistical Programmer advised pt at this time of this being pt's last Ativan administration and Dr. Nuñez has Vistaril ordered to help tp with anxiety. Pt refuses Vistaril, commercial insurance underwriter educates pt on anti-anxiety qualities of medication. Pt states, " that OTC stuff don't work, that's crap." Pt continues to refuse Seroquel and demand Ativan. Principal Statistical Programmer re-iterated Dr. Tay assessment of no Ativan needed at this time. Dr. Santana, was notified of pt's refusal of Seroquel. Will continue to monitor, support and encourage according to plan of care.
--- NOTE | 2017-12-17 13:59 | NUR ---
Mid-Shift Endorsement Sales Agent Business Services provided report on 22 year old male admitted on 12/15/17 for medical management of Heroin and Methamphetamine withdrawals. Pt endorses NKA, full code and regular diet. No PMH, endorses PPH of anxiety. Pt has been placed on a Subutex taper and is tolerating well with last COWS 8 recorded at 1600. Pt not administered any PRN medication by story writer. Pt A/O x4 and makes his needs known. Clear of thought and speech process. Pt is anxious, demanding, irritable, rude and argumentative. Pt perseverates on Ativan and his need of this medication to get him thru this thing. Pt is manipulative, attention seeking, dramatic and staff splitting. Bed in low position with wheels locked and side rails up x2. Will continue to monitor, support and encourage according to plan of care.
[2017-12-17] MEDS: HYDROXYZINE PAMOATE 25 MG CAPSULE PO PRN (15:23)
[2017-12-17] MEDS: BUPRENORPHINE HCL 2 MG TAB.SUBL SL SCH ×2 (15:24→20:29)
--- NOTE | 2017-12-17 15:26 | NUR ---
PRN GIVEN Pt c/o increase anxiety. Pt is fidgety and unable to sit still. Clonidine 0.1mg PO PRN and Vistaril 50mg PO PRN was given as ordered. Will continue to monitor.
[2017-12-17 16:00] VITALS: BP 114/66
--- NOTE | 2017-12-17 16:30 | NUR ---
PRN RE-ASSESSMENT Clonidine PRN and Vistaril PRN was mildly effective. Pt continues to c/o increase anxiety. Will continue to monitor.
[2017-12-17] MEDS ORDERED: IBUP-1955 PO (16:40)
[2017-12-17] MEDS ORDERED: DIPH50CA37 PO (16:40)
[2017-12-17] MEDS ORDERED: CLON0.1T14 PO (16:40)
[2017-12-17] MEDS ORDERED: DICY20TA28 PO (16:40)
[2017-12-17] MEDS ORDERED: METH-406 PO (16:40)
[2017-12-17] MEDS ORDERED: HYDR-3895 PO (16:40)
[2017-12-17] MEDS ORDERED: GABA-534 PO (16:40)
--- NOTE | 2017-12-17 18:52 | NUR ---
END OF SHIFT Pt is a 22 yr old male, AA&Ox4. Pt was admitted on 12/15/17 for Opiate withdrawal and is on 5 day Subutex taper as ordered. Pt has been c/o increase anxiety. Pt is observed fidgety and unable to stay still. Fine tremors are seen on BUE. Skin is intact, warm and moist to touch. Pt received Clonidine 0.1mg PO PRN and Vistaril 50mg PO PRN at 1523. Medication was mildly effective. Pt refused Seroquel at 0900 and 1300 but agreed to take at 1700. Last COWS score was 9 at 1600. Pt is on fall and seizure precautions. Call light is within reach.
[2017-12-17 20:00] VITALS: BP 108/65
--- NOTE | 2017-12-17 20:00 | NUR ---
Start of Shift Patient lying on bed, watching tv and noted to be anxious. Pt is avoidant while being spoken to by nurse. Room appears messy, with food wrappers scattered on the floor and on the table. Pt appears unkempt, c/o increasing anxiety and jitters. Pt continues to Subutex taper. Fall, universal, seizure and safety prec in place. Call light within reach. Provided education and teachings. Latest COWS-9. Will continue to monitor.
[2017-12-17] MEDS: QUETIAPINE FUMARATE 200 MG TABLET PO SCH (20:29)
[2017-12-17] MEDS: CLONIDINE HCL 0.1 MG TABLET PO SCH (20:29)
[2017-12-18] VITALS: BP 105/66
[2017-12-18 04:00] VITALS: BP 112/67
--- NOTE | 2017-12-18 07:20 | NUR ---
START OF SHIFT : PATIENT IS A 22 YR OLD MALE ADMITTED TO [facility] ON 12/15/17 FOR WITHDRAWAL FROM OPIATES ( HEROIN ). HE IS ON A 5 DAY SUBUTEX TAPER AND THIS IS DAY 4. TB TEST TO BE READ TODAY. PATIENT DID NOT REQUIRE OR REQUEST ANY PRN MEDS LAST NIGHT, LAST COWS WAS 8 AND PATIENT SLEPT FOR 10 HOURS. PATIENT IS ASLEEP IN BED AT THIS TIME, BREATHING EVEN AND UNLABORED. SIDE RAILS UP X 2. WILL CONTINUE TO FOLLOW MD PLAN OF CARE.
--- NOTE | 2017-12-18 07:26 | NUR ---
End of Shift Patient still asleep on bed but arousable. No SOB noted. Pt continues to be avoidant and argumentative at times. Pt noted to be depressed and isolative, intermittently stares into space. Pt easily become anxious. To continue with Subutex taper. Fall, universal, seizure and safety prec in place. Call light within reach. Provided education and teachings. Latest COWS-9, slept for 10 hours. Will continue to monitor.
[2017-12-18 08:00] VITALS: BP 97/62
[2017-12-18] MEDS: QUETIAPINE FUMARATE 25 MG TABLET PO SCH ×3 (09:00→16:59)
--- NOTE | 2017-12-18 09:45 | NUR ---
SEROQUEL REFUSED PATIENT REFUSED SCHEDULED 50MG PO SEROQUEL
[2017-12-18] MEDS: GABAPENTIN 300 MG CAPSULE PO SCH (10:22)
[2017-12-18] MEDS: CLONIDINE HCL 0.1 MG TABLET PO SCH ×3 (10:23→22:01)
[2017-12-18] MEDS: BUPRENORPHINE HCL 2 MG TAB.SUBL SL SCH ×3 (10:23→22:02)
[2017-12-18] MEDS: LORAZEPAM 1 MG TABLET PO PRN ×3 (11:34→22:01)
--- NOTE | 2017-12-18 11:35 | NUR ---
PRN ATIVAN 2MG ATIVAN 2MG PO GIVEN FOR AGITATION/WITHDRAWALS, PATIENT CIWA 13, WILL CONTINUE TO MONITOR
[2017-12-18 12:00] VITALS: BP 119/73
[2017-12-18] MEDS ORDERED: KETOROLAC TROMETHAMINE 30 MG INJ IM PRN (12:00)
--- NOTE | 2017-12-18 12:35 | NUR ---
PRN REASSESS ATIVAN 2MG PO EFFECTIVE, PT STATES HE FEELS LESS AGITATED, CIWA NOW 9 ( WAS 13 ) WILL CONTINUE TO MONITOR
--- NOTE | 2017-12-18 13:00 | NUR ---
SEROQUEL REFUSED SCHEDULED 1300 DOSE OF 50MG SEROQUEL PO REFUSED BY PATIENT
[2017-12-18 16:00] VITALS: BP 109/63
[2017-12-18] MEDS: GABAPENTIN 400 MG CAPSULE PO SCH ×2 (16:54→22:01)
--- NOTE | 2017-12-18 17:00 | NUR ---
PRN ATIVAN 2MG ATIVAN PO GIVEN FOR AGITATION/WITHDRAWALS CIWA 12, WILL CONTINUE TO ASSESS, PATIENT RESTING IN BED , SIDE RAILS UP , CALL LIGHT WITHIN REACH
--- NOTE | 2017-12-18 18:00 | NUR ---
PRN ATIVAN REASSESS PATIENT APPEARS LESS ANXIOUS AND MORE RELAXED, ATIVAN 2MG PO EFFECTIVE COWS NOW 7 ( WAS 10 ) AND CIWA NOW 10 ( WAS 12 ). WILL CONTINUE TO MONITOR
--- NOTE | 2017-12-18 18:49 | NUR ---
END OF SHIFT : PATIENT IS A 22 YR OLD MALE ADMITTED TO [facility] ON 12/15/17 FOR WITHDRAWAL FROM HEROIN AND METHAMPHETAMINES. HE IS ON A 5 DAY SUBUTEX TAPER AND PRN ATIVAN AND THIS IS DAY 4. PATIENT IS ISOLATIVE TO HIS ROOM AND APPEARS DISHEVELED AND UNSHAVED. PATIENTS ROOM IS A MESS OF UNEATEN FOOD AND DRINKS SCATTERED AROUND EVERY AVAILABLE COUNTER TOP. PATIENT IS ANXIOUS AND DIGGING HIS NAILS INTO HIS HANDS AND STATES " ONLY ATIVAN HELP EASE MY ANXIETY ". MD PLACED A PRN 2MG ATIVAN ORDER Q6 HOURS AND PATIENT WILL ONLY TAKE SCHEDULED MEDS WHEN HE CAN HAVE ATIVAN. PATIENT HAS REFUSED 0900, 1300 AND 1700 50MG PO SEROQUEL, PSYCHIATRIST AWARE AND SAID OK. PRN MEDS GIVEN THIS SHIFT : ATIVAN 2MG X2 . PATIENT ATTENDED AM GROUP BUT STAYED IN HIS ROOM DURING AFTERNOON GROUP. FLUID INTAKE THIS SHIFT 1200 ML,3 VOIDS AND 0 BM. LAST COWS 7 AND CIWA 10 @ 1800.CONTINUE TO FOLLOW MD PLAN OF CARE.
--- NOTE | 2017-12-18 19:30 | NUR ---
START of shift note : Patient is a 22 year male, admitted for medically supervised withdrawal from Opioid on 12/15/2017, pt. is on 5 Day Subutex Taper and Ativan PRN. Patent reports NKA, is on Full Code, Regular Diet, is on Fall Precautions. Pt. is medication seeking, cont. asks for Ativan PRN. Pt. is depressed and isolative, anxious, sad facial expression. . Latest COWS=10, CIWA=7 @1600. Pt. complains of insomnia, headache, increased level of anxiety. Encouraged patient to participate in group therapies and verbalize feelings. Instructed patient to maintain adequate fluid and nutritional intake. Encouraged to attend group and participate in activities due to self isolation. Safety measures in place : bed on lowest position with side rails x2 up for safety, all light within reach. Will continue to monitor closely and offer help.
[2017-12-18 20:00] VITALS: BP 105/60
--- NOTE | 2017-12-18 21:45 | NUR ---
MD Communication: Pt requesting for 2mg Ativan for anxiety along with his other medications. MD made aware and okayed to give PRN Ativan at this time.
[2017-12-18] MEDS: BACLOFEN 10 MG TABLET PO SCH (22:00)
--- NOTE | 2017-12-18 22:00 | NUR ---
PRN ATIVAN ( CIWA=13 ) Pt. is agitated, disrespectful, using abusive language, skin is wet, CIWA=13. PRN ATIVAN given as ordered. Safety measures in place : bed on lowest position with side rails x2 up for safety, call light within reach. Will continue to monitor closely and offer help.
[2017-12-18] MEDS: QUETIAPINE FUMARATE 200 MG TABLET PO SCH (22:01)
--- NOTE | 2017-12-18 23:00 | NUR ---
RE-ASSESSMENT ATIVAN Pt. is sleeping, RR=16, unlabored and even . Safety measures in place : bed on lowest position with side rails x2 up for safety, call light within reach. Will continue to monitor closely and offer help.
--- NOTE | 2017-12-19 06:45 | NUR ---
END of shift note : Patient is a 22 year male, admitted for medically supervised withdrawal from Opioid on 12/15/2017, pt. is on 5 Day Subutex Taper and Ativan PRN. Patent reports NKA, is on Full Code, Regular Diet, is on Fall Precautions. Pt. is medication seeking, cont. asks for Ativan PRN in the evening and early in the night (when pt. was alert). PRN given during second shift supervisor : ATIVAN. CIWA, COWS taken when pt. was awake, last CIWA=9, COWS=7 at 04:00 . Pt. slept all night through. Intake=1,394ml, voided x3, slept=10 hours. Safety measures in place : bed on lowest position with side rails x2 up for safety, all light within reach. Will continue to monitor closely and offer help.
--- NOTE | 2017-12-19 07:17 | NUR ---
START OF SHIFT : PATIENT IS A 22 YR OLD MALE ADMITTED TO [facility] ON 12/15/17 FOR WITHDRAWAL FROM OPIATES ( HEROIN ). HE IS ON A 5 DAY SUBUTEX TAPER AND THIS IS DAY 5. PATIENT REQUIRED PRN ATIVAN 2MG LAST NIGHT, LAST COWS WAS 7 AND CIWA 9 AND PATIENT SLEPT FOR 10 HOURS. ROOM IS A MESS OF UNEATEN FOOD, PLATES, CUPS AND WRAPPERS. PATIENT IS ASLEEP IN BED AT THIS TIME, BREATHING EVEN AND UNLABORED. SIDE RAILS UP X 2. WILL CONTINUE TO FOLLOW MD PLAN OF CARE.
[2017-12-19] MEDS: CLONIDINE HCL 0.1 MG TABLET PO SCH ×3 (08:14→21:00)
[2017-12-19] MEDS: BACLOFEN 10 MG TABLET PO SCH ×3 (08:14→21:56)
[2017-12-19] MEDS: LORAZEPAM 1 MG TABLET PO PRN (08:14)
[2017-12-19] MEDS: GABAPENTIN 400 MG CAPSULE PO SCH ×3 (08:14→21:55)
[2017-12-19] MEDS: QUETIAPINE FUMARATE 25 MG TABLET PO SCH ×3 (08:21→15:01)
[2017-12-19] MEDS ORDERED: BUPRENORPHINE HCL 2 MG TAB.SUBL SL SCH (09:00)
[2017-12-19 10:34] VITALS: BP 104/68
[2017-12-19] MEDS ORDERED: CLONIDINE HCL 0.1 MG TABLET PO PRN (11:30)
[2017-12-19 12:00] VITALS: BP 111/60
[2017-12-19] MEDS ORDERED: LORAZEPAM 1 MG TABLET PO ONE (12:00)
[2017-12-19] MEDS: HYDROXYZINE PAMOATE 25 MG CAPSULE PO PRN ×2 (15:00→21:56)
--- NOTE | 2017-12-19 15:00 | NUR ---
PRN VISTARIL VISTARIL 50MG PO GIVEN FOR PATIENTS SIGNS OF ANXIETY AND AGITATION, WILL CONTINUE TO MONITOR
[2017-12-19 16:00] VITALS: BP 93/46
--- NOTE | 2017-12-19 16:00 | NUR ---
PRN REASSESS VISTARIL EFFECTIVE, PATIENT IS IN GROUP
--- NOTE | 2017-12-19 18:50 | NUR ---
END OF SHIFT : PATIENT IS A 22 YR OLD MALE ADMITTED TO [facility] ON 12/15/17 FOR WITHDRAWAL FROM HEROIN AND METHAMPHETAMINES. HE IS ON A 5 DAY SUBUTEX TAPER AND PRN ATIVAN AND THIS IS DAY 5. PATIENT IS ISOLATIVE TO HIS ROOM AND CONSTANTLY DEMANDS PRN ATIVAN, PATIENT HAS BEEN EDUCATED NUMEROUS TIMES ON MEDICATION AND SUBSTITUTES FOR ATIVAN HAVE BEEN OFFERED . PATIENT HAS REFUSED 0900 AND 1500 50MG PO SEROQUEL, PSYCHIATRIST AWARE AND SAID OK. PRN MEDS GIVEN THIS SHIFT : VISTARIL 50MG PO . PATIENT DID NOT ATTEND AM GROUP BUT DID JOIN AFTERNOON GROUP . FLUID INTAKE THIS SHIFT 2000 ML, 3 VOIDS AND 1 BM. LAST COWS 7 @ 1600.CONTINUE TO FOLLOW MD PLAN OF CARE.
--- NOTE | 2017-12-19 19:30 | NUR ---
START of shift note : Patient is a 22 year male, admitted for medically supervised withdrawal from Opioid on 12/15/2017, pt. was on 5 Day Subutex Taper and Ativan PRN. Patent reports NKA, is on Full Code, Regular Diet, is on Fall Precautions. Pt. is still medication seeking, cont. asks for Ativan PRN. PRN given during a day shift : VISTARIL, SEROQUEL. COWS taken when pt. was awake, last COWS=6 at 16:00 . Pt. appears disheveled, unkempt, poor eye contact, irritable. He complains of increased level of anxiety, insomnia. Pt. will be D/C tomorrow in A.M. Safety measures in place : bed on lowest position with side rails x2 up for safety, all light within reach. Will continue to monitor closely and offer help.
[2017-12-19 20:00] VITALS: BP 102/60
--- NOTE | 2017-12-19 21:00 | NUR ---
PRN VISTARIL, BENADRYL, ROBAXIN Pt. complains of difficulty falling asleep, insomnia, increased level of anxiety, muscle spasm. PRN VISTARIL, BENADRYL, ROBAXIN given as ordered. Safety measures in place : bed on lowest position with side rails x2 up for safety, call light within reach. Will continue to monitor closely and offer help.
[2017-12-19] MEDS: QUETIAPINE FUMARATE 200 MG TABLET PO SCH (21:56)
--- NOTE | 2017-12-19 22:00 | NUR ---
RE-ASSESSMENT MARIYA ELLSWORTH ROBAXIN Pt. is sleeping, RR=16, unlabored and even . Safety measures in place : bed on lowest position with side rails x2 up for safety, call light within reach. Will continue to monitor closely and offer help.
--- NOTE | 2017-12-20 | NUR ---
PRN TYLENOL (FXAC=805.4) PRN TYLENOL 650mg PO given as ordered.Safety measures in place : bed on lowest position with side rails x2 up for safety, all light within reach. Will continue to monitor closely and offer help.
--- NOTE | 2017-12-20 01:00 | NUR ---
RE-ASSESSMENT TYLENOL (TEMP=98.8) Pt. is sleeping, RR=16, unlabored and even . TEMP=98.8. Safety measures in place : bed on lowest position with side rails x2 up for safety, call light within reach. Will continue to monitor closely and offer help.
--- NOTE | 2017-12-20 06:40 | NUR ---
END of shift note : Patient is a 22 year male, admitted for medically supervised withdrawal from Opioid on 12/15/2017, pt. was on 5 Day Subutex Taper and Ativan PRN. Patent reports NKA, is on Full Code, Regular Diet, is on Fall Precautions. Pt. is still medication seeking, cont. asks for Ativan PRN. PRN given during material handler 2nd shift : BENADRYL, ROBAXIN, VISTARIL, TYLENOL. COWS taken when pt. was awake, last, COWS=6 at 04:00 . Otolon=4057vd, voided x5, slept=10 hours. Pt. got Uxdw=103.4 at 00:00, Tylenol 650mg PRN given as ordered, Temp=98.8 at 04:00, Pt. will be D/C today in A.M. Safety measures in place : bed on lowest position with side rails x2 up for safety, all light within reach. Will continue to monitor closely and offer help.
--- NOTE | 2017-12-20 07:55 | NUR ---
START OF SHIFT: RECEIVED PT A/O X 4. HE PRESENTS WITH ANXIOUS MOOD AND IS FIDGETY. TAPERS COMPLETED YESTERDAY. HE C/O H/A 5/10 ON PAIN SCALE. COWS 4. HE ALSO REPORTS ANXIETY AND EXPRESSED NEED FOR ATIVAN. PRN MOTRIN GIVEN FOR H/A. WILL CONTINUE WITH DISCHARGE PLANNING AND MONITOR EFFECTIVENESS OF PRN MED.
[2017-12-20 08:00] VITALS: BP 100/60
[2017-12-20] MEDS: GABAPENTIN 400 MG CAPSULE PO SCH (08:10)
[2017-12-20] MEDS: QUETIAPINE FUMARATE 25 MG TABLET PO SCH (08:10)
[2017-12-20] MEDS: BACLOFEN 10 MG TABLET PO SCH (08:11)
[2017-12-20] MEDS: CLONIDINE HCL 0.1 MG TABLET PO SCH (08:11)
[2017-12-20] MEDS: IBUPROFEN 600 MG TABLET PO PRN (08:11)
--- NOTE | 2017-12-20 10:23 | NUR ---
DISCHARGE: PT IS A/O X 4. HE DENIES S/I AND H/I. BELONGINGS RETURNED. EDUCATED PT ON DISCHARGE MEDS AND INSTRUCTIONS. PT EXPRESSED VERBAL UNDERSTANDING OF EDUCATION . ARCHITECTURAL MANAGER ESCORTED PT TO [facility] WHERE HE WAS TRANSPORTED BY PARENT HOME.
== END 2017-12-20 10:06 | disposition home or self-care (01) | DRG 895 ==
LOC: SRC 15:15
PROVIDERS: ADMIT Internal Medicine; ATTEND Internal Medicine
PROC: HZ2ZZZZ Detoxification Services for Substance Abuse Treatment (ICD-10-PCS; principal; 2017-12-15)
PROC: HZ51ZZZ Individual Psychotherapy for Substance Abuse Treatment, Behavioral (ICD-10-PCS; 2017-12-17)
DX: F11.23 Opioid dependence with withdrawal (principal); I15.9 Secondary hypertension, unspecified; F39 Unspecified mood [affective] disorder; F17.210 Nicotine dependence, cigarettes, uncomplicated; G47.00 Insomnia, unspecified; Z59.1 Inadequate housing; F41.9 Anxiety disorder, unspecified; Z91.5 Personal history of self-harm; Z59.0 Homelessness
CPT/HCPCS: 80307; 86580

== ENCOUNTER 2018-07-01 19:17 | Inpatient (IN) | payer MEDICAID, OTHER ==
[~2018-07-01] VITALS: Ht 172.7 cm; Wt 61.2 kg
[~2018-07-01 19:17] MED LIST changes: +DICY20TA28 PO; +DIPH50CA37 PO; +GABA-534 PO; +IBUP-1955 PO; +METH-406 PO; +QUET200T PO; +QUET50TA PO
--- NOTE | 2018-07-01 19:39 | NUR ---
PREADMISSION NOTE Pt was seen in the intake office. Pt is not intoxicated from ETOH and is currently exhibiting s/s of withdrawal from ETOH. Pt, however, is still high from Heroin. Pt appears disheveled and unkempt. Pt has difficulty sitting still. Pt has a steady gait and his V/S are WNL. Pt is acceptable for admittance to the unit.
--- NOTE | 2018-07-01 19:59 | NUR ---
ADMISSION NOTE Pt is a 23 y/o male who is being admitted for medically supervised withdrawal from ETOH and Heroin. The pt is intoxicated from Heroin and currently not experiencing any withdrawal. Pt is not intoxicated from ETOH and is currently experiencing withdrawal. Pt appears disheveled, unshaven, and unkempt. Pt has a flat affect and is anxious and agitated. Pt is also nauseous. Pt is A/O to person, place, time, and purpose. Pt has poor eye contact and has difficulty sitting still. The pt states that withdrawal from these substances typically includes anxiety, tremors, muscle spasms, and nausea. The last time I went through withdrawals my arms and legs became very twitchy and I was extremely anxious and couldnt sit still. Pt denies any withdrawal induced delirium or seizures. Pt states current substance use as follows: 1. ETOH (Whiskey): 1900-2800ml daily for the past 2 mos. Pt last had a drink of 96ml at 0930 on 07/01/18. He first began using 12 yrs ago. 2. Heroin: 0.2g smoking daily for the past 2 mos. Pts last use of 0.1g was at 1800 on 07/01/18. He first began using 8 yrs ago. Pt states that he is seeking treatment today because his addiction has caused negative effects in all aspects of his life. Christie had enough and I am sick of it all. This is not the pts first time in detox or through treatment. Pt was at [facility] in October of this year, as well as, [facility] in [place] this past Spring. He stayed sober for 90 days, but relapsed shortly after discharge in March. Pt states that they cope with stressors in his life by drinking and using Heroin. Pt also states that this not an effective way to deal with stress. Pt knows he needs new coping mechanisms. Pt states that he is more focused this time. Pt states that they want to feel better and he is willing to do anything to get clean and sober and stay that way. Pt states that his mom and dad are good support systems for him. Pt states that he is willing to get a sponsor and got o AA meetings. V/S: T:98.2, P:98, RR:18, SPO2:96, BP:114/67. Pt denies any pain. Respirations are unlabored and even. Pulse is strong and regular. Skin is intact. Pt has no known allergies. Pt follows a regular diet at home. Pt is 56 and 135LBS. Pt is a non-smoker. Pt doesnt have any medical or psychiatric Hx. Pt doesnt have a PCP or psychiatrists. Pt was educated on the plan of care including detox, group and individual therapy, and discharge planning. Pt was encouraged to be open and honest. Pt was given verbal support for his choice in recovery.
[2018-07-01 20:08] VITALS: BP 115/80
--- NOTE | 2018-07-01 20:15 | NUR ---
CIWA ASSESSMENT. COWS DEFERRED CIWA 13. Pt is presenting w/ anxious mood, agitation and restlessness, and tremors. COWS deferred due to pt being intoxicated from Opiates. V/S: T:98.1, P:88, RR:18, SPO2:96, BP:115/80.
[2018-07-01] MEDS ORDERED: BUPRENORPHINE HCL 2 MG TAB.SUBL SL PRN (20:30)
[2018-07-01] MEDS ORDERED: diphenhydrAMINE 50 MG CAPSULE PO PRN (20:30)
[2018-07-01] MEDS ORDERED: ONDANSETRON 4 MG/2 ML VIAL IM PRN (20:30)
[2018-07-01] MEDS ORDERED: ACETAMINOPHEN 325 MG TABLET PO PRN (20:30)
[2018-07-01] MEDS ORDERED: LOPERAMIDE HCL 2 MG CAPSULE PO PRN ×2 (20:30)
[2018-07-01] MEDS ORDERED: MIRALAX 17 GM POWD.PACK PO PRN (20:30)
[2018-07-01] MEDS ORDERED: THIAMINE HCL 200 MG/2 ML VIAL IM ONE (20:30)
[2018-07-01] MEDS ORDERED: DICYCLOMINE HCL 20 MG TABLET PO PRN (20:30)
[2018-07-01] MEDS ORDERED: LORAZEPAM 2 MG/1 ML VIAL IM PRN (20:30)
[2018-07-01] MEDS ORDERED: MAGNESIUM HYDROXIDE 30 ML LIQUID UDC PO PRN (20:30)
[2018-07-01] MEDS ORDERED: IBUPROFEN 600 MG TABLET PO PRN (20:30)
[2018-07-01] MEDS ORDERED: ONDANSETRON ODT 4 MG TAB.RAPDIS SL PRN (20:30)
[2018-07-01] MEDS ORDERED: MAG HYDROX/AL HYDROX/SIMETH 30 ML LIQUID UDC PO PRN (20:30)
[2018-07-01] MEDS ORDERED: LORAZEPAM 1 MG TABLET PO PRN ×2 (20:30)
[2018-07-01] MEDS ORDERED: METHOCARBAMOL 750 MG TABLET PO PRN (20:30)
--- NOTE | 2018-07-01 21:18 | NUR ---
PRN ATIVAN ADMINISTRATION Ativan 1mg given for anxiety and CIWA OF 13. Will reassess pt in 1 hr.
--- NOTE | 2018-07-01 22:18 | NUR ---
PRN ATIVAN REASSESSMENT Pt is in bed w/ his eyes closed. Pt's respirations are unlabored and even.
[2018-07-01 22:35] LABS: *AMPHETAMINE, URINE NEGATIVE (NEGATIVE); *BARBITURATE, URINE NEGATIVE (NEGATIVE); *CANNABINOID, URINE NEGATIVE (NEGATIVE); *COCCAINE, URINE NEGATIVE (NEGATIVE); *OPIATE, URINE POSITIVE (NEGATIVE); *PHENCYCLIDINE SCREEN,URINE NEGATIVE (NEGATIVE)
--- NOTE | 2018-07-02 04:16 | NUR ---
CIWA AND COWS DEFERRED. V/S REFUSED Pt is in bed w/ his eyes closed. Pt's respirations are unlabored and even.
--- NOTE | 2018-07-02 07:23 | NUR ---
END OF SHIFT NOTE Endorsed pt to oncoming nurse. Pt is a 23 y/o male A/O to person, place, time, and purpose. Pt was admitted for medically supervised withdrawal from ETOH and Opiates. Pt has not started a taper. Pt presented w/ anxiety, agitation, depressed mood, flat affect, restlessness, and tremors. Pt denies any S/I or H/I. PRN Ativan 1mg given for CIWA 13 noted effective. Pts fluid intake was 600ml and he slept for 8.5hrs. Last CIWA 13 @ 0000. Pts COWS was deferred due to pt being intoxicated from Opiates. Call light is within reach.
--- NOTE | 2018-07-02 07:25 | NUR ---
Start of Shift Pt. is a 23 y/o male admitted for the medically managed withdrawal from ETOH , and Opiates. Pt. is currently on PRN Ativan to manage withdrawal symptoms and is awaiting further assessment by MD. Endorse from previous shift pt. came in intoxicated from opiates but withdrawing from ETOH. Pt. was given PRN Ativan to manage withdrawal symptoms. Received pt. in room. Pt. in bed with eyes closed, no signs of distress noted. Safety measures in place. Will continue to monitor pt.'s behavior for safety.
[2018-07-02 08:00] VITALS: BP 102/70
[2018-07-02] MEDS ORDERED: TUBERCULIN,PURIF.PROT.DERIV. 5 TU/0.1 ML TEST ID ONE (09:00)
--- NOTE | 2018-07-02 09:30 | NUR ---
COWS/CIWA Assessment COWS of 12 and CIWA of 17. Pt. walked to the nursing station and requested medications. Once in room pt. noted to be constantly moving, with tremors, anxiety and agitation. Pt. given PRN Ativan 2mg per MD order. Pt. is currently refusing to take Subutex stating "I'm not withdrawing from that yet, it's the alcohol I'm withdrawing from." Will continue to monitor pt.'s behavior for safety and medication effectiveness.
[2018-07-02] MEDS: MULTIVITAMINS,THERAPEUTIC TABLET PO SCH (09:31)
[2018-07-02] MEDS: FOLIC ACID 1 MG TABLET PO SCH (09:31)
[2018-07-02] MEDS: THIAMINE HCL 100 MG TABLET PO SCH (09:32)
--- NOTE | 2018-07-02 10:30 | NUR ---
COWS/CIWA Assessment COWS of 8 and CIWA of 11. Pt. laying in his bed watching television. Pt. states "Ativan really works for me can I please have more soon." Pt. presents with anxiety and agitation, but seems completely absorbed watching television. Per MD order pt. will begin his taper medication, and will no longer need to be covered by PRN Ativan for current CIWA score. Medication effective. Will continue to monitor pt.'s behavior for safety.
[2018-07-02] MEDS ORDERED: 4 DAY TAPER BUPRENORPHINE -SERENITY PROTOCOL SL PRN (11:30)
[2018-07-02] MEDS ORDERED: 5 DAY TAPER OF LORAZEPAM -SERENITY PROTOCOL PO PRN (11:30)
[2018-07-02] MEDS ORDERED: QUETIAPINE FUMARATE 25 MG TABLET PO PRN (11:30)
[2018-07-02 12:00] VITALS: BP 113/71
--- NOTE | 2018-07-02 12:00 | NUR ---
COWS/CIWA Assessment COWS of 9 and CIWA of 11. Pt. laying in bed presenting with anxiety, restlessness, agitation, and tremors. Will give medications as ordered. Will continue to monitor pt.'s behavior for safety.
[2018-07-02 14:44] LABS: BASOPHILS % (AUTO) 0.7 % (0.0-2.0); EOSINOPHILS # (AUTO) 0.2 K/uL (0.0-0.7); HEMATOCRIT 44.8 % (36.7-47.1); HEMOGLOBIN 15.6 g/dL (12.5-16.3); LYMPHOCYTES # (AUTO) 1.5 K/uL (20.0-40.0); LYMPHOCYTES % (AUTO) 25.4 % (20.5-51.5); MEAN CORPUSCULAR HEMOGLOBIN 31.5 uug (23.8-33.4); MEAN CORPUSCULAR HGB CONC 35 g/dL (32.5-36.3); MEAN CORPUSCULAR VOLUME 90.9 fL (73.0-96.2); MONOCYTES # (AUTO) 0.4 K/uL (2.0-10.0); MONOCYTES % (AUTO) 6.4 % (0.0-11.0); NEUTROPHILS # (AUTO) 3.8 K/uL (1.8-8.9); NEUTROPHILS % (AUTO) 63.5 % (38.5-71.5); PLATELET COUNT (AUTO) 238 K/uL (152-348); RED BLOOD CELL COUNT(AUTO) 4.93 MIL/uL (4.06-5.63); WHITE BLOOD COUNT (AUTO) 5.9 K/uL (3.6-10.2)
[2018-07-02] MEDS: LORAZEPAM 1 MG TABLET PO SCH ×2 (14:55→20:18)
[2018-07-02] MEDS: BUPRENORPHINE HCL 2 MG TAB.SUBL SL SCH ×2 (14:55→20:18)
[2018-07-02 14:56] LABS: ALANINE AMINOTRANSFERASE 22 U/L (16-63); ALKALINE PHOSPHATASE 55 U/L (50-136); AMYLASE 63 U/L (25-115); ASPARTATE AMINOTRANSFERASE 14 U/L (15-37); BILIRUBIN,TOTAL 0.5 mg/dL (0.2-1.0); CARBON DIOXIDE 28 mmol/L (21-32); CHLORIDE 102 mmol/L (98-107); CREATININE 0.9 mg/dL (0.6-1.3); GLUCOSE 96 mg/dL (74-106); LIPASE 73 U/L (73-393); MAGNESIUM 1.9 mg/dL (1.8-2.4); POTASSIUM 4.4 mmol/L (3.5-5.1); UREA NITROGEN, BLOOD 16 mg/dL (7-18)
[2018-07-02 15:06] LABS: THYROID STIMULATING HORMONE 1.489 mIU/mL (0.358-3.740)
[2018-07-02 16:00] VITALS: BP 104/65
--- NOTE | 2018-07-02 16:00 | NUR ---
COWS/CIWA Assessment COWS of 10 and CIWA of 11. Pt. in room presenting with anxiety, restlessness, agitation, and tremors. Pt. compliant with medication regiment. Will continue to monitor pt.'s behavior for safety.
--- NOTE | 2018-07-02 19:02 | NUR ---
Start of shift Pt. is a 23 y/o male admitted for the medically managed withdrawal from ETOH , and Opiates. After assessment by pt. was placed on a 4 day Ativan taper and a 5 day subutex taper. Throughout shift pt. presented with anxiety, restlessness, poor impulse control, poor boundaries, and agitation. Pt. given PRN Ativan for withdrawal symptoms. Safety measures in place. Will endorse pt.'s care to oncoming shift. Addendum: 07/02/18 at 1902 by JAY KWON RN End of shift note
--- NOTE | 2018-07-02 19:50 | NUR ---
Start of Shift Note Received a 23 y/o male px, admitted for medically supervised withdrawal from ETOH and Heroin. Px was placed on 4 day Ativan taper and 5 day Subutex taper. Last reported COWS 10 and CIWA 11 by AM shift nurse. During the rounds at 1950, px is awake on bed in fowlers position watching TV. Px appears anxious. He is disheveled. Drinks noted on top of the bed side table and on top of shelves. At first, he does not want to be assessed. Px states Can you do that later or tomorrow, I am watching TV. Explains to the px that assessment should be done before medications will be given. He immediately changes his mind. He states that his anxiety is 10/10. He also complains of sweats, stuffy nose, and leg pain of 5/10. Mild bilateral hand tremors noted. Bed on lowest position, side rails up on the right side and call light within reach. Px refused to put up the side rail on his left side. Well continue to monitor.
[2018-07-02 20:00] VITALS: BP 108/67
--- NOTE | 2018-07-02 20:00 | NUR ---
COWS 10 and CIWA 13 Upon assessment, px appears anxious. He states that his anxiety is 10/10. He also complains of sweats, stuffy nose, and leg pain of 5/10. Mild bilateral hand tremors noted. NH= 102. will continue to monitor
[2018-07-02] MEDS ORDERED: QUETIAPINE FUMARATE 200 MG TABLET PO PRN (21:00)
[2018-07-03] VITALS: BP 103/65
--- NOTE | 2018-07-03 | NUR ---
COWS and CIWA deferred COWS and CIWA deferred due to the px is asleep, to assess if the px is awake per doctor's order. will continue to monitor
[2018-07-03 04:00] VITALS: BP 101/66
--- NOTE | 2018-07-03 07:05 | NUR ---
End of Shift Note During the shift, No PRN medications given. Oral intake is 1100 ml, voided 3x, without BM. Px slept for 8 hours. Last COWS 10 and CIWA 13. Bed on lowest position, side rails up on the right side and call light within reach. Well continue to monitor. Px endorsed to AM shift nurse.
--- NOTE | 2018-07-03 07:20 | NUR ---
Start Of Shift Patient is a 23 yr old male who was admitted to [facility] on 07/01/18 for a medically supervised withdrawal from ETOH ( Whisky) and Opiates ( Heroin ( smoke) ), he has been placed on a 4 day Ativan and 5 day Subutex taper. No PRN medications were given on PM shift, he slept for 8+ hours and last COWS was 10 and CIWA 13. Currently he is asleep in bed, breathing even and unlabored, side rails up and call light within reach. Continue to follow MD plan of care and offer support and encouragement.
[2018-07-03] MEDS: THIAMINE HCL 100 MG TABLET PO SCH (08:58)
[2018-07-03] MEDS: FOLIC ACID 1 MG TABLET PO SCH (08:58)
[2018-07-03] MEDS: MULTIVITAMINS,THERAPEUTIC TABLET PO SCH (08:58)
[2018-07-03] MEDS: LORAZEPAM 1 MG TABLET PO SCH ×4 (08:58→20:15)
[2018-07-03 09:00] VITALS: BP 128/88
[2018-07-03] MEDS ORDERED: BUPRENORPHINE HCL 2 MG TAB.SUBL SL SCH (09:00)
--- NOTE | 2018-07-03 09:00 | NUR ---
COWS 9 CIWA 13 Patient presents with restlessness, fidgeting, decreased appetite, diaphoresis, irritability and lethargy Scheduled Ativan and Subutex given
[2018-07-03 12:00] VITALS: BP 113/71
--- NOTE | 2018-07-03 12:42 | NUR ---
Therapist prompted client to attend all group therapy sessions.
--- NOTE | 2018-07-03 13:00 | NUR ---
COWS 9 CIWA 13 Patient presents with restlessness, fidgeting, decreased appetite, diaphoresis, increased anxiety, irritability and lethargy Scheduled Ativan given
[2018-07-03] MEDS: BUPRENORPHINE HCL 2 MG TAB.SUBL SL SCH ×2 (14:34→20:14)
[2018-07-03 15:40] LABS: ETHANOL < 3 MG/DL (0-0)
[2018-07-03 16:00] VITALS: BP 107/57
--- NOTE | 2018-07-03 16:00 | NUR ---
COWS 8 CIWA 12 Patient presents with restlessness, fidgeting, decreased appetite, diaphoresis, increased anxiety, irritability and lethargy
--- NOTE | 2018-07-03 18:59 | NUR ---
End Of Shift Patient is a 23 yr old male who was admitted to [facility] on 07/01/18 for a medically supervised withdrawal from ETOH ( Whisky) and Opiates ( Heroin ( IV/smoke) ), he has been placed on a 4 day Ativan and 5 day Subutex taper. No PRN medications were given on this shift. His withdrawal symptoms include irritability, agitation, lethargy and restlessness, he has not attended any groups today nor interacted with his peers. He had a fluid intake of 1500ML,1Voids and 0 BM, last COWS was 8 and CIWA 12 @ 1600. Continue to follow MD plan of care and offer support and encouragement. Endorsed to night worker.
--- NOTE | 2018-07-03 19:45 | NUR ---
START OF SHIFT NOTE Rcvd report from outgoing nurse. Pt is a 23 y/o male A/O to person, place, time, and purpose. Pt was admitted for medically supervised withdrawal from ETOH and Heroin. Pt is on day 2 of a 4 day Ativan and 5 day Subutex taper. Pt has been presenting w/ anxiety, agitation, irritability, emotional volatility, restless legs, fidgetiness, depressed mood, and a blunt affect. Pt rcvd no PRN medications during previous shift. Last CIWA 12 and COWS 8 @ 1600. Call light is within reach. Pt will continue to be monitored and needs met.
[2018-07-03 20:05] VITALS: BP 126/76
--- NOTE | 2018-07-03 20:05 | NUR ---
CIWA AND COWS ASSESSMENT CIWA 14 and COWS 10. Pt has been presenting w/ anxiety, agitation, irritability, emotional volatility, restless legs, fidgetiness, depressed mood, and a blunt affect. V/S: T:98.2, P:84, RR:16, SPO2:96, BP:126/76.
[2018-07-03] MEDS: HYDROXYZINE PAMOATE 25 MG CAPSULE PO PRN (20:14)
[2018-07-03] MEDS: CLONIDINE HCL 0.1 MG TABLET PO PRN (20:14)
--- NOTE | 2018-07-03 20:14 | NUR ---
PRN CLONIDINE AND VISTARIL ADMINISTRATION Clonidine 0.1mg and Vistaril 25mg given for anxiety and agitation. Will reassess pt in 1hr
--- NOTE | 2018-07-03 21:14 | NUR ---
PRN BENADRYL AND CLONIDINE REASSESSMENT Pt is in bed w/ his eyes closed. Pt's respirations are unlabored and even. Will continue to monitor pt.
--- NOTE | 2018-07-04 00:11 | NUR ---
CIWA AND COWS DEFERRED. V/S REFUSED Pt is in bed w/ his eyes closed. Pt's respirations are unlabored and even.
--- NOTE | 2018-07-04 04:09 | NUR ---
CIWA AND COWS DEFERRED. V/S REFUSED Pt is in bed w/ his eyes closed. Pt's respirations are unlabored and even.
--- NOTE | 2018-07-04 07:00 | NUR ---
END OF SHIFT NOTE Endorsed pt to oncoming nurse. Pt is a 23 y/o male A/O to person, place, time, and purpose. Pt was admitted for medically supervised withdrawal from ETOH and Heroin. Pt completed day 2 of a 4 day Ativan and 5 day Subutex taper. Pt continues presenting w/ anxiety, agitation, irritability, emotional volatility, restless legs, fidgetiness, depressed mood, and a blunt affect. Pt denies any S/I or H/I. PRN Clonidne and Vistaril were given for anxiety and agitation, noted effective. pts fluid intake was 500ml and he slept for 10hrs. Last CIWA 14 and COWS 10 @ 1999. Call light is within reach.
--- NOTE | 2018-07-04 07:27 | NUR ---
Start Of Shift Patient is a 23 yr old male who was admitted to [facility] on 07/01/18 for a medically supervised withdrawal from ETOH ( Whisky) and Opiates ( Heroin ( smoke) ), he has completed a 4 day Ativan and 5 day Subutex taper and is to be discharged this AM to " [facility]". PRN medications were given on PM shift: Clonidine and Vistaril, he slept for 10+ hours and last COWS was 10 and CIWA 14. Currently he is asleep in bed, breathing even and unlabored, side rails up and call light within reach. Continue to follow MD plan of care and offer support and encouragement. Addendum: 07/04/18 at 0734 by SUSANA BETANCOURT RN Correction: He is NOT being discharged today and he continues on a 4 day Ativan and 5 day Subutex taper
[2018-07-04 08:00] VITALS: BP 120/77
[2018-07-04] MEDS: LORAZEPAM 1 MG TABLET PO SCH ×3 (09:08→20:13)
[2018-07-04] MEDS: MULTIVITAMINS,THERAPEUTIC TABLET PO SCH (09:09)
[2018-07-04] MEDS: BUPRENORPHINE HCL 2 MG TAB.SUBL SL SCH ×3 (09:09→20:14)
[2018-07-04] MEDS: FOLIC ACID 1 MG TABLET PO SCH (09:09)
[2018-07-04] MEDS: THIAMINE HCL 100 MG TABLET PO SCH (09:09)
--- NOTE | 2018-07-04 09:25 | NUR ---
COWS 9 CIWA 12 Patient presents with restlessness, fidgeting, diaphoresis, increased anxiety, irritability and lethargy
--- NOTE | 2018-07-04 11:07 | NUR ---
Endorsement Endorsed care to Aundrea RAYMUNDO, all pertinent information relayed.
[2018-07-04 12:00] VITALS: BP 98/55
--- NOTE | 2018-07-04 12:00 | NUR ---
COWS AND CIWA ASSESSMENT Pt was observed with increase anxiety m/b difficulty staying still. Pt is observed with flat affect, avoidant in eye contact and is blunt during assessment. Pt is c/o muscle aches, anxiety, sweats and chills. COWS score is 8 and CIWA score is 10. Pt was encouraged increase fluid intake. Will continue to monitor.
--- NOTE | 2018-07-04 13:29 | NUR ---
Therapist prompted client to attend all group therapy sessions.
[2018-07-04 16:00] VITALS: BP 113/68
--- NOTE | 2018-07-04 19:10 | NUR ---
END OF SHIFT Pt is a 23 yr old male, AA&Ox4. Pt was admitted on 07/01/18 for ETOH/Opiate withdrawal and is on 4 day Ativan and 5 day Subutex taper as ordered. Pt has been observed isolative, avoidant in eye contact, flat and blunt affect, agitated, restless legs and fidgety in bed. Pt was c/o increase anxiety. Clonidine 0.1mg PO PRN and Vistaril PO PRN was offered. Pt refused. Pt was encouraged to attend group therapy but pt refused to participate in any activities. No PRNs were given. Last COWS score was 7 and CIWA score was 9 1600. Endorsed to shift leader nurse to continue with care.
--- NOTE | 2018-07-04 19:48 | NUR ---
START OF SHIFT NOTE Rcvd report from outgoing nurse. Pt is a 23 y/o male A/O to person, place, time, and purpose. Pt was admitted for medically supervised withdrawal from ETOH and Heroin. Pt is on day 3 of a 4day Ativan and Subutex taper. Pt has been presenting w/ anxiety, emotional volatility, agitation, depressed and withdrawn mood, flat affect, and tremors. Pt rcvd no PRN medications during previous shift. Last CIWA 9 and COWS 7 @ 1600. Call light is within reach. Pt will continue to be monitored and needs met.
[2018-07-04 20:11] VITALS: BP 110/62
[2018-07-04] MEDS: HYDROXYZINE PAMOATE 25 MG CAPSULE PO PRN (20:13)
--- NOTE | 2018-07-04 20:13 | NUR ---
CIWA AND COWS ASSESSMENT CIWA 11 and COWS 9. Pt has been presenting w/ anxiety, emotional volatility, agitation, depressed and withdrawn mood, flat affect, and tremors. V/S: T:98.2, P:90, RR:14, SPO2:98, BP:110/62.
[2018-07-04] MEDS: CLONIDINE HCL 0.1 MG TABLET PO PRN (20:14)
--- NOTE | 2018-07-04 20:14 | NUR ---
PRN CLONIDINE AND VISTARIL ADMINISTRATION Clonidine 0.1mg and Vistaril 25mg given for anxiety and agitation. CIWA 11. Will reassess pt in 1 hr.
--- NOTE | 2018-07-04 21:14 | NUR ---
PRN CLONIDINE AND VISTARIL REASSESSMENT Pt states that he is still feeling anxious. Pt also states that he can't fall asleep either. Pt states that the MD was suppose dto increase his Ativan dose. Pt informed that no such change has taken place. Pt wanted RN to call the MD and ask to increase dosage. Educated pt on relaxation techniques such as putting on soft music, turning off the lights, and deep breathing. Pt refused. Pt was also offered Benadryl or Seroquel to dietitian helper insomnia. Pt refused. Will continue to monitor pt.
--- NOTE | 2018-07-05 00:05 | NUR ---
CIWA AND COWS DEFERRED. V/S REFUSED Pt is in bed w/ his eyes closed. Pt's respirations are unlabored and even.
--- NOTE | 2018-07-05 04:03 | NUR ---
CIWA AND COWS DEFERRED. V/S REFUSED Pt is in bed w/ his eyes closed. Pt's respirations are unlabored and even.
--- NOTE | 2018-07-05 07:07 | NUR ---
END OF SHIFT NOTE Endorsed pt to oncoming nurse. Pt is a 23 y/o male A/O to person, place, time, and purpose. Pt was admitted for medically supervised withdrawal from ETOH and Heroin. Pt completed day 3 of a 4day Ativan and Subutex taper. Pt continues presenting w/ anxiety, emotional volatility, agitation, depressed and withdrawn mood, flat affect, and tremors. Pt denies any S/I or H/I. PRN Clonidine 0.1mg and Vistaril 25mg were given for anxiety and agitation and note effective. Pts fluid intake was 1300ml and he slept for 9hrs. Last CIWA 11 and COWS 9 @ 1999. Call light is within reach.
--- NOTE | 2018-07-05 07:30 | NUR ---
Start of Shift Engineering Specialist Technician received report on 23 year old male admitted to [facility] on 07/01/18 for medical management of ETOH and Opiate withdrawals. Pt endorses NKA, full code and regular diet. Denies any PMH/PPH. Pt currently on 4 day Ativan and 5 day Subutex taper, last CIWA 11 and COWS 9, per NOC report. Pt was administered Clonidine/Vistaril(anxiety) as PRN medications on NOC, per report. Engineering Specialist Technician encounters pt in pts room with pt resting with eyes closed. Even and unlabored respirations noted. Bed in low position with wheels locked and side rails upx2. Will continue to monitor, support and encourage according to plan of care.
--- NOTE | 2018-07-05 08:00 | NUR ---
CIWA 13/COWS 9 Pt is diaphoretic, tremulous, anxious and restless. Pt with complaints of chills, nausea and myalgia. Will continue to monitor, support and encourage according to plan of care.
[2018-07-05 08:09] LABS: HEPATITIS B SURFACE AG Negative (Negative)
[2018-07-05] MEDS: LORAZEPAM 1 MG TABLET PO SCH ×2 (08:27→21:02)
[2018-07-05] MEDS: MULTIVITAMINS,THERAPEUTIC TABLET PO SCH (08:27)
[2018-07-05] MEDS: FOLIC ACID 1 MG TABLET PO SCH (08:27)
[2018-07-05] MEDS: THIAMINE HCL 100 MG TABLET PO SCH (08:27)
[2018-07-05 08:35] VITALS: BP 114/76
[2018-07-05] MEDS ORDERED: BUPRENORPHINE HCL 2 MG TAB.SUBL SL SCH (09:00)
[2018-07-05 12:15] VITALS: BP 117/67
--- NOTE | 2018-07-05 13:14 | NUR ---
CIWA 9/COWS 9 Pt with complaints of chills, nausea and myalgia. Pt is anxious, restless, tremulous and has moist skin. Will continue to monitor, support and encourage according to plan of care.
--- NOTE | 2018-07-05 15:10 | NUR ---
Therapist prompted client to attend group therapy.
[2018-07-05 16:30] VITALS: BP 110/68
--- NOTE | 2018-07-05 16:30 | NUR ---
CIWA 7/COWS 7 Pt with moist skin, tremors, anxiety and restlessness. Pt complains of nausea, chills and myalgia. Will continue to monitor, support and encourage according to plan of care.
--- NOTE | 2018-07-05 18:54 | NUR ---
End of Shift Team Member provided report on 23 year old male admitted to [facility] on 07/01/18 for medical management of ETOH and Opiate withdrawals. Pt endorses NKA, full code and regular diet. Denies any PMH/PPH. Pt currently on 4 day Ativan and 5 day Subutex taper, last CIWA 7 and COWS 7, recorded at 1630. No PRN medications administered this shift. Pt is A/O x4 and makes his needs known. Linear thought process with rapid speech pattern. Pt with an anxious affect and depressed mood. Pt is restless, with complaints of nausea and chills. Pt is visible to go to patio, but remains isolative and withdrawn. Bed in low position with wheels locked and side rails upx2.
--- NOTE | 2018-07-05 19:30 | NUR ---
START OF SHIFT Received 23 year old male patient admitted on 07/01/18 for ETOH and Opiate withdrawal. Pt is alert and oriented x4. He appears older than stated age, is noted with anxiety, restlessness, agitation, irritability and preoccupied with medications. Per endorsement, he did not receive or request PRN medications. He continues on a 4 day Subutex and 4 day Ativan taper and tolerating well. Last COWS:7, CIWA:7 at 1600. Breathing is even and unlabored, safety measures in place. Will continue to monitor.
--- NOTE | 2018-07-05 20:00 | NUR ---
COWS/CIWA Patient noted with anxiety, restlessness, agitation, irritability, fidgety behavior, mildly diaphoretic, and preoccupied with medications. Current COWS = 8 and CIWA = 9 prior to 2100 medication administration. Will continue to monitor.
[2018-07-05 20:02] VITALS: BP 120/69
[2018-07-05] MEDS: TRAZODONE 50 MG TABLET PO PRN (21:03)
--- NOTE | 2018-07-05 21:03 | NUR ---
PRN TRAZODONE Pt complains of difficulty falling asleep. PRN Trazodone administered as ordered. Will monitor effectiveness.
--- NOTE | 2018-07-05 22:03 | NUR ---
PRN Trazodone reassessment PRN medication effective. Patient lying in bed with eyes closed breathing even and unlabored. Safety measure in place. Will continue to monitor.
--- NOTE | 2018-07-06 00:55 | NUR ---
Vitals refused/ CIWA Deferred Patient refused 0000 vitals. Patient noted to be lying in bed with RR even and unlabored. Noted to be sleeping.
--- NOTE | 2018-07-06 04:11 | NUR ---
VITALS REFUSED, CIWA/COWS DEFERRED 0400 vitals refused. COWS/CIWA deferred d/t pt lying in bed with eyes closed noted to be asleep. Breathing even and unlabored, safety measures in place. Will continue to monitor.
--- NOTE | 2018-07-06 07:15 | NUR ---
Start of Shift Pt. is a 23 y/o male admitted for the medically managed withdrawal from ETOH and opiates. Pt. was placed on ativan and subutex tapers to manage his withdrawal symptoms. Pt. was given PRN Trazadone to manage withdrawal symptoms during previous shift. Endorse from previous shift pt. presented with anxiety, restlessness, agitation, irritability, and medication focused. Received pt. in room. Pt. laying in the position with his eyes closed on his bed. Pt.' s linens are cluttered about his bed and falling off the sides. Pt.'s room is cluttered with food containers and personal items. Safety measures in place. Will continue to monitor pt.'s behavior for safety.
--- NOTE | 2018-07-06 07:18 | NUR ---
END OF SHIFT Pt is a 23 year old male patient admitted on 07/01/18 for ETOH and Opiate withdrawal. Pt remains alert and oriented x4. He was noted with anxiety, restlessness, agitation, irritability and was preoccupied with medications during the shift. At 2103 he received PRN Trazodone. He completed 4 day Subutex and 4 day Ativan taper and tolerating well. He slept a total of 8hrs, Intake: 1,506 mL, Void: x3, BM:0, Last COWS:8, CIWA:9 at 2000. Breathing is even and unlabored, safety measures in place. Endorsed to AM shift.
[2018-07-06 08:00] VITALS: BP 116/72
--- NOTE | 2018-07-06 08:00 | NUR ---
COWS/CIWA Assessment COWS of 6 and CIWA of 6. Pt. in room and presents with anxiety, agitation and restlessness. Will give medications as ordered. Will continue to monitor pt.'s behavior for safety.
[2018-07-06] MEDS: MULTIVITAMINS,THERAPEUTIC TABLET PO SCH (09:00)
[2018-07-06] MEDS: THIAMINE HCL 100 MG TABLET PO SCH (09:00)
[2018-07-06] MEDS: FOLIC ACID 1 MG TABLET PO SCH (09:00)
[2018-07-06 12:00] VITALS: BP 114/69
[2018-07-06] MEDS ORDERED: HYDR-3895 PO (14:37)
[2018-07-06 16:00] VITALS: BP 115/75
--- NOTE | 2018-07-06 19:28 | NUR ---
End of Shift Note Pt. is a 23 y/o male admitted for the medically managed withdrawal from ETOH and opiates. Pt. was placed on ativan and subutex tapers to manage his withdrawal symptoms. Throughout shift pt. presented with anxiety, restlessness, agitation, irritability, and medication focused. Safety measures in place. Will endorse pt.'s care to oncoming shift.
--- NOTE | 2018-07-06 19:30 | NUR ---
START OF SHIFT Received 23 year old male patient admitted on 07/01/18 for ETOH and Opiate withdrawal. Pt is alert and oriented x4. Pt noted to be disheveled, room noted with clothes thrown on floor, and garbage around room. Pt is anxious, agitated, and irritable with poor eye contact and fidgety behavior. Per endorsement, did not receive or request PRN medications. He is scheduled to be DC tomorrow. Last COWS:6, CIWA:6 at 1600. Breathing is even and unlabored, safety measures in place. Will continue to monitor.
[2018-07-06 20:00] VITALS: BP 118/65
--- NOTE | 2018-07-06 20:00 | NUR ---
COWS/CIWA Pt complains of increased anxiety, agitation, and restlessness. Pt is fidgety with poor eye contact. COWS:5, CIWA:7. Will continue to monitor.
[2018-07-06] MEDS: TRAZODONE 50 MG TABLET PO PRN (21:29)
--- NOTE | 2018-07-06 21:29 | NUR ---
PRN TRAZODONE Pt complains of difficulty sleeping. PRN Trazodone administered as ordered. Safety measures in place. Will monitor.
--- NOTE | 2018-07-06 22:29 | NUR ---
PRN TRAZODONE REASSESSMENT PRN medication ineffective. Pt still awake and unable to fall asleep. Will continue to monitor.
[2018-07-07] VITALS: BP 125/74
--- NOTE | 2018-07-07 | NUR ---
COWS/CIWA Pt is anxious, restless, irritable and complains of insomnia. COWS:6, CIWA:7. Will continue to monitor.
--- NOTE | 2018-07-07 00:09 | NUR ---
PRN SEROQUEL Pt requested Seroquel to help him sleep. PRN Seroquel 50 mg administered as ordered. Safety measures in place. Will monitor.
--- NOTE | 2018-07-07 01:09 | NUR ---
PRN SEROQUEL REASSESSMENT PRN medication effective. Pt is lying in bed ith eyes closed noted to be asleep. Breathing is even and unlabored, will continue to monitor.
--- NOTE | 2018-07-07 04:00 | NUR ---
VITALS REFUSED, COWS/CIWA DEFERRED 0400 vitals refused. COWS/CIWA deferred d/t pt lying in bed with eyes closed and is noted to be asleep. Breathing is even and unlabored, safety measures in place. Will continue to monitor.
--- NOTE | 2018-07-07 07:05 | NUR ---
END OF SHIFT Pt is a 23 year old male patient admitted on 07/01/18 for ETOH and Opiate withdrawal. Pt remains alert and oriented x4. He was noted to be anxious, agitated, and irritable with poor eye contact and fidgety behavior during the shift. He is scheduled to be DC today. At 2129 he received PRN Trazodone, and at 0009 he received PRN Seroquel. He slept a total of 5 hrs, Intake:855mL, Void: x2, BM:0, Last COWS:6, CIWA:7 at 0000. Breathing is even and unlabored, safety measures in place. Will endorse to AM shift.
--- NOTE | 2018-07-07 07:45 | NUR ---
START OF SHIFT Endorse rcvd from ongoing nurse, client is in bed, lying on his L side, sounds asleep, RR 16 even, non-labored, easy to arouse. Room is unkept, clothes scattered on the floor, primary nurse cleaned area. PRN Trazodone 50mg PO, Seroquel 50mg, client slept 5 hrs. Client completed 4 day Ativan / 4 day Subutex taper. Client is schedule for discharge this morning for continuity of treatment. Last CIWA 7 / COWS 6 @ 2400. Seizure precautions. Bed in lowest/locked position, side rails x 2 up/padded. Call light within reach. Will continue to monitor.
[2018-07-07 08:46] VITALS: BP 119/68
[2018-07-07] MEDS: FOLIC ACID 1 MG TABLET PO SCH (09:00)
[2018-07-07] MEDS: MULTIVITAMINS,THERAPEUTIC TABLET PO SCH (09:00)
[2018-07-07] MEDS: THIAMINE HCL 100 MG TABLET PO SCH (09:00)
--- NOTE | 2018-07-07 09:30 | NUR ---
CIWA 6 / COWS 5 Client reports anxiety, agitation, and restlessness. Client is fidgety, avoidant gaze, and difficulty concentrating. Non-pharmacological measures rendered. Will continue to monitor. Call light within reach.
[2018-07-07 12:00] VITALS: BP 112/67
--- NOTE | 2018-07-07 12:00 | NUR ---
CIWA 5 /COWS 5 Client continues to present with anxiety and agitation. Non-pharmacological measures rendered. Will continue to monitor. Call light within reach.
--- NOTE | 2018-07-07 17:03 | NUR ---
Discharge Note Client discharged in stable condition with all valuable, belongings and prescription. Client denies SI/HI. To [place] via private car.
== END 2018-07-07 17:09 | disposition other institution (70) | DRG 772 ==
LOC: SRC 19:17
PROVIDERS: ADMIT Internal Medicine; ATTEND Internal Medicine
PROC: HZ2ZZZZ Detoxification Services for Substance Abuse Treatment (ICD-10-PCS; principal; 2018-07-01)
PROC: HZ31ZZZ Individual Counseling for Substance Abuse Treatment, Behavioral (ICD-10-PCS; 2018-07-03)
PROC: HZ41ZZZ Group Counseling for Substance Abuse Treatment, Behavioral (ICD-10-PCS; 2018-07-06)
DX: F10.230 Alcohol dependence with withdrawal, uncomplicated (principal); F11.23 Opioid dependence with withdrawal; Y90.9 Presence of alcohol in blood, level not specified; F17.210 Nicotine dependence, cigarettes, uncomplicated; Z86.69 Personal history of other diseases of the nervous system and sense organs; G47.00 Insomnia, unspecified; F41.9 Anxiety disorder, unspecified; F32.9 Major depressive disorder, single episode, unspecified
CPT/HCPCS: 36415; 70030-TC; 80307; 80361; 83690; 83735; 84443; 85025; 86592; 86705; 86803; 87340; 87806; G0480